=== PATIENT | female | born 1940 | race Hispanic/Latino ===

== ENCOUNTER 2016-06-11 08:20 | Observation (INO) | payer MEDICARE, OTHER ==
[2016-06-11 08:20] VITALS: BMI 27.4
[2016-06-11 08:40] VITALS: BP 160/83; PULSE 65; RESP 20; TEMP 98.7; O2SAT 98
--- NOTE | 2016-06-11 08:41 | ED PDOC ---
HPI: General Adult Time Seen by Provider: 06/11/16 08:36 Chief Complaint (Nursing): ENT Problem History Per: Patient History/Exam Limitations: no limitations Onset/Duration Of Symptoms: Days Additional Complaint(s): 75-year-old female, PMHx includes Anxiety, Arthritis, Dementia, Depression, Diabetes, Gastritis, Hypertension, Hypercholesterolemia, and Hyperlipidemia, presents to the emergency department with multiple complaints of epigastric abdominal pain that radiates to back for the past 2-3 days. Pain is described as a "burning" sensation, associated with dysuria; it was initially intermittent , but became persistent this morning, resulting in her coming to the ED for evaluation. secondary complaint is sore throat x3 days. Patient denies nausea/ vomiting, dyspnea, chest pain, dizziness, back pain, fevers, chills, numbness/ weakness, incontinence, or any other associated symptoms. No other complaints at this time. PMD Dr Farrar Past Medical History Reviewed: Historical Data, Nursing Documentation, Vital Signs Vital Signs: Last Vital Signs Temp 98.7 F 06/11/16 08:22 Pulse 65 06/11/16 08:22 Resp 20 06/11/16 08:22 BP 160/83 H 06/11/16 08:22 Pulse Ox 98 06/11/16 14:16 - Medical History PMH: Anxiety, Arthritis, Dementia, Depression, Diabetes (type II), Gastritis, HTN, Hypercholesterolemia, Hyperlipidemia Denies: Hepatitis, HIV, Chronic Kidney Disease, Seizures, Sexually Transmitted Disease - Surgical History Surgical History: Cholecystectomy - Family History Family History: States: Unknown Family Hx - Living Arrangements Living Arrangements: With Family - Social History Current smoker - smoking cessation education provided: No Alcohol: None Drugs: Denies - Home Medications Home Medications: Ambulatory Orders Medication Instructions Recorded Acetaminophen [Tylenol 325mg tab] 2 tab PO Q4 PRN 04/27/16 Aluminum Hydroxide/Magnesium H 30 ml PO DAILY PRN 04/27/16 [Maalox 30 ml] DiphenhydrAMINE [Benadryl] 25 mg PO HS PRN 04/27/16 DiphenhydrAMINE [Benadryl] 25 mg PO Q8 PRN 04/27/16 Haloperidol Lactate [Haldol] 1 mg IM Q8 PRN 04/27/16 Haloperidol [Haldol] 1 mg PO Q8 PRN 04/27/16 Multivit,Tx,Iron/Calcm/FA/Mins 1 tab PO DAILY 04/27/16 [Therapeutic M Tablet] Risperidone [Risperdal] 0.5 mg PO Q12 PRN 04/27/16 Aspirin [Aspirin Chewable] 1 tab PO DAILY #30 chew 04/30/16 Atorvastatin [Lipitor] 40 mg PO HS #30 tab 04/30/16 Bismuth Subsalicylate [Pepto 524 mg PO DAILY PRN #30 ctb 04/30/16 Bismol] Calcium Carbonate [Oscal] 500 mg PO DAILY #30 tab 04/30/16 Ergocalciferol (Vitamin D2) 1 tab PO QD7 #4 capsule 04/30/16 [Vitamin D2] Escitalopram [Lexapro] 1 tab PO DAILY #30 tab 04/30/16 Famotidine [Pepcid] 1 tab PO BID #60 tab 04/30/16 Fenofibrate [Tricor] 48 mg PO DAILY #30 tab 04/30/16 Gabapentin [Neurontin] 1 tab PO Q12 #60 cap 04/30/16 Lisinopril [Zestril] 20 mg PO Q12 #60 tab 04/30/16 Magnesium Hydroxide [Milk Of 30 ml PO HS PRN #150 udc 04/30/16 Magnesia] Memantine [Namenda] 5 mg PO DAILY #30 tab 04/30/16 Metformin HCl [Glucophage] 1 tab PO BID #60 tablet 04/30/16 Metoprolol Tartrate [Lopressor] 25 mg PO Q12 #60 tab 04/30/16 Risperidone [Risperdal] 1 mg PO DAILY #30 tablet 04/30/16 Risperidone [Risperdal] 2 mg PO DAILY #30 tablet 04/30/16 - Allergies Allergies/Adverse Reactions: Allergies Allergy/AdvReac Type Severity Reaction Status Date / Time No Known Allergies Allergy Verified 06/11/16 08:22 Review of Systems ROS Statement: Except As Marked, All Systems Reviewed And Found Negative Constitutional: Negative for: Fever, Chills ENT: Positive for: Throat Pain Respiratory: Negative for: Cough Gastrointestinal: Positive for: Abdominal Pain. Negative for: Nausea, Vomiting , Diarrhea, Constipation Genitourinary Female: Positive for: Dysuria. Negative for: Vaginal Discharge, Vaginal Bleeding Musculoskeletal: Positive for: Back Pain Skin: Negative for: Rash Neurological: Negative for: Weakness, Numbness, Headache, Dizziness Physical Exam - Reviewed Nursing Documentation Reviewed: Yes Vital Signs Reviewed: Yes - Physical Exam Appears: Positive for: Non-toxic, No Acute Distress Head Exam: Positive for: NORMOCEPHALIC Skin: Positive for: Warm, Dry. Negative for: Rash Eye Exam: Positive for: Normal appearance ENT: Positive for: Pharyngeal Erythema (TRACE). Negative for: Nasal Congestion , Tonsillar Exudate Neck: Positive for: Normal, Painless ROM, Supple Cardiovascular/Chest: Positive for: Regular Rate, Rhythm. Negative for: Edema Respiratory: Positive for: Normal Breath Sounds. Negative for: Accessory Muscle Use Gastrointestinal/Abdominal: Positive for: Soft, Tenderness (mild, diffuse). Negative for: Distended, Guarding, Rebound Back: Positive for: Normal Inspection. Negative for: L CVA Tenderness, R CVA Tenderness Extremity: Positive for: Normal ROM. Negative for: Tenderness, Pedal Edema Neurologic/Psych: Positive for: Alert (and awake), Oriented - Laboratory Results Result Diagrams: 06/11/16 09:15 06/11/16 09:15 Interpretation Of Abn Labs: urine wbc, strep pos - ECG ECG: Positive for: Interpreted By Me, Viewed By Me ECG Rhythm: Positive for: Normal QRS, Normal ST Segment, Sinus Rhythm O2 Sat by Pulse Oximetry: 98 Pulse Ox Interpretation: Normal - CT Scan/US ct Other Rad Studies (CT/US): Read By Radiologist Other Rad Interpretation: adnexal cyst Medical Decision Making Medical Decision Making: Impression: 75y/o F comes in w/ abdominal pain and throat pain x2-3 days. Prior Visits: Notes and records from previous visits were reviewed. Patient seen in ED on 04/12, she was admitted for chest pain. Plan: * CT Abd/Pel * EKG * CMP, Lipase, Trop I * CBC * IVF, Pepcid * Rapid Strep * Reassess and Disposition Scribe Attestation: Documented by Sheryl Huitron acting as a scribe for Mendoza Cunningham MD. Provider Attestation: All medical record entries made by the Scribe were at my direction and personally dictated by me. I have reviewed the chart and agree that the record accurately reflects my personal performance of the history, physical exam, medical decision making, and the department course for this patient. I have also personally directed, reviewed, and agree with the discharge instructions and disposition. ED OBSERVATION Discharge: Yes Date of observation admission: 06/11/16 Time of observation admission: 08:50 - Observation admission statement Patient is being placed in observation because:: abdominal pain - Goals of Observation Goals of observation are:: TREAT PAIN, DETERMINE DISPO - Progress Note Progress Note: 06/11/16 10:00 Patient is (+) for Strep. Pending CT scan 06/11/16 14:17 Stable. AAOx3. Pain free. Tolerated PO. Fu with pcp. Disposition - Clinical Impression Clinical Impression: Streptococcal sore throat, Ovarian cyst, Abdominal pain, UTI (urinary tract infection) - Patient ED Disposition Is Patient to be Admitted: No Counseled Patient/Family Regarding: Studies Performed, Diagnosis, Need For Followup, Rx Given - Disposition Disposition: Routine/Home Disposition Time: 14:24 Condition: STABLE - POA Present On Arrival: None
[2016-06-11] MEDS ORDERED: Sodium Chloride 0.9% 1,000 ML IV STA (08:51)
[2016-06-11] MEDS ORDERED: Iohexol 240 (50 ml) PO ONE (08:51)
[2016-06-11] MEDS ORDERED: Iohexol 240 (50 ml) ONE (09:16)
[2016-06-11 09:35] LABS: BASO % 0.2 % (0.0-2.0); EOS # 0.1 K/uL (0.0-0.7); EOS % 1.2 % (0.0-4.0); HEMATOCRIT 36.3 % (34.0-47.0); LYMPH # 0.9 K/uL (1.0-4.3); LYMPH % 10.6 % (20.0-40.0); MEAN CELL VOLUME 85.2 fl (81.0-99.0); MEAN CORPUSCULAR HEMOGLOBIN 27.7 pg (27.0-31.0); MEAN CORPUSCULAR HGB CONC 32.5 g/dL (33.0-37.0); MEAN PLATELET VOLUME 9.2 fl (7.2-11.7); MONO # 0.7 K/uL (0.0-0.8); MONO % 7.7 % (0.0-10.0); NEUT # 6.8 K/uL (1.8-7.0); NEUT % 80.3 % (50.0-75.0); WHITE BLOOD COUNT 8.4 K/uL (4.8-10.8)
[2016-06-11 09:41] LABS: ALB/GLOB RATIO 1.6 (1.0-2.1); ALKALINE PHOSPHATASE 43 U/L (38-126); ALT/SGPT 25 U/L (9-52); AST/SGOT 37 U/L (14-36); BILIRUBIN,TOTAL 1.2 mg/dl (0.2-1.3); BLOOD UREA NITROGEN 16 mg/dl (7-17); CALCIUM 9.7 mg/dL (8.4-10.2); CARBON DIOXIDE 28 mmol/L (22-30); CHLORIDE 104 mmol/L (98-107); GFR AFRICAN-AMERICAN > 60; GLUCOSE,RANDOM 101 mg/dL (65-105); LIPASE 76 U/L (23-300); POTASSIUM 4.5 MMOL/L (3.6-5.0); SODIUM 140 mmol/l (132-148); TOTAL PROTEIN 7.2 G/DL (6.3-8.2)
[2016-06-11 09:45] LABS: RBC URINE 2 /hpf (0-3); URINE BACTERIA RARE (<OCC); URINE BILIRUBIN NEGATIVE (NEGATIVE); URINE BLOOD NEGATIVE (NEGATIVE); URINE COLOR YELLOW (YELLOW); URINE GLUCOSE (UA) NEG (Normal); URINE KETONE NEGATIVE (NEGATIVE); URINE LEUKOCYTE ESTERASE MOD Leu/uL (Negative); URINE PROTEIN NEGATIVE (NEGATIVE); URINE UROBILINOGEN 0.2-1.0 mg/dL (0.2-1.0); WBC URINE 7 /hpf (0-5)
[2016-06-11] MEDS ORDERED: Sodium Chloride 0.9% 100 ML ONE (11:01)
[2016-06-11] MEDS ORDERED: Iohexol 300 100 ML IJ ONE (11:01)
--- NOTE | 2016-06-11 14:12 | CT ---
PROCEDURE: CT Abdomen and Pelvis with contrast HISTORY: abd pain COMPARISON: None. TECHNIQUE: Contrast dose: 100 cc Radiation dose: Total exam DLP = 861 mGy-cm. FINDINGS: LOWER THORAX: No infiltrate or effusion. Small hiatal hernia is noted. LIVER: Liver is probably mildly fatty infiltrated. Minor intrahepatic ductal dilatation is seen although the gallbladder is been previously removed. Common bile duct is not dilated and no common bile duct calculus was seen. GALLBLADDER AND BILE DUCTS: Gallbladder is been previously removed. Common bile duct is normal in size with normal tapering. PANCREAS: Unremarkable. No gross lesion or ductal dilatation. SPLEEN: Unremarkable. ADRENALS: Unremarkable. No mass. KIDNEYS AND URETERS: Small right renal cyst is noted in the upper pole region. No hydronephrosis is seen. No renal calculus is noted. No perinephric changes are seen. Kidneys are otherwise normal in size. VASCULATURE: Unremarkable. No aortic aneurysm. BOWEL: No pericolonic inflammatory process is seen. No bowel obstruction is noted . No pneumatosis is identified. Terminal ileum is unremarkable. APPENDIX: Normal appendix. PERITONEUM: Unremarkable. No free fluid. No free air. LYMPH NODES: Unremarkable. No enlarged lymph nodes. BLADDER: Unremarkable. REPRODUCTIVE: There is evidence of a left adnexal cyst measuring 4.9 centimeters x 4.3 centimeters by 3.8 centimeters. No right adnexal masses are seen. No fluid is seen in the cul-de-sac. Uterus is otherwise normal in size. BONES: Degenerative changes are seen in the spine without compression fracture. No lytic process is seen. OTHER FINDINGS: There is evidence of some mild thickening in the region of the gastric antrum. A portion of this may be related to under distention. Remainder the stomach is unremarkable. Duodenum is within normal limits. IMPRESSION: No evidence of bowel obstruction. No evidence of free intraperitoneal air. Mild thickening in the region of the gastric antrum which may reflect gastritis or under distention. Status post cholecystectomy. Minor intrahepatic ductal prominence although the common bile duct is normal in size and no common bile duct stone is seen. This may be related to the long-standing cholecystectomy. Small right renal cyst. Enlarged low-density smoothly marginated left adnexal cyst. Further work up as an outpatient would be suggested if this has not already been evaluated. Normal appendix.
--- NOTE | 2016-06-13 09:50 | CARD ---
APPROVED REPORT EKG Measurement Heart [id number] <Conclusion> Normal sinus rhythm Normal ECG
== END 2016-06-11 14:24 | disposition home or self-care (01) ==
LOC: H.ER 08:20 → H.EROBSV 08:52 → H.ERHOLD 08:52 → H.EROBSV 16:50
PROVIDERS: ADMIT Emergency Medicine; ATTEND Emergency Medicine
DX: J02.0 Streptococcal pharyngitis (principal); N83.209 Unspecified ovarian cyst, unspecified side; N39.0 Urinary tract infection, site not specified; E11.9 Type 2 diabetes mellitus without complications; E78.00 Pure hypercholesterolemia, unspecified; E78.5 Hyperlipidemia, unspecified; F03.90 Unspecified dementia, unspecified severity, without behavioral disturbance, psychotic disturbance, mood disturbance, and anxiety; I10 Essential (primary) hypertension; K29.70 Gastritis, unspecified, without bleeding; M19.90 Unspecified osteoarthritis, unspecified site; F41.9 Anxiety disorder, unspecified; F32.9 Major depressive disorder, single episode, unspecified
CPT/HCPCS: 36415; 74177; 80053; 81003; 83690; 84484; 85025; 87086; 87430; 96360; 96374; 99283; G0378; J7040; Q9966; Q9967

== ENCOUNTER 2016-06-14 05:17 | Emergency (ER) | payer MEDICARE, OTHER ==
[2016-06-14 05:17] VITALS: BMI 27.4
[2016-06-14] MEDS ORDERED: Sodium Chloride 0.9% 1,000 ML IV STA (05:45)
--- NOTE | 2016-06-14 05:57 | ED PDOC ---
HPI: Abdomen Time Seen by Provider: 06/14/16 05:25 Chief Complaint (Nursing): Abdominal Pain Chief Complaint (Provider): Abdominal Pain History Per: Patient History/Exam Limitations: no limitations Onset/Duration Of Symptoms: Persistent (2 weeks) Severity: Moderate Location Of Pain/Discomfort: LUQ, LLQ Quality Of Discomfort: "Pain" Associated Symptoms: denies: Nausea, Vomiting Additional Complaint(s): Ghada Gomez is a 75 y/o female, with a past medical history of gastritis, hypertension, hypercholesterolemia, and dementia, brought in by EMS on 2016 for abdominal pain. Patient, of note, is well-known to the ED and is a poor historian. Patient reports having left sided abdominal pain x2 weeks. Patient denies any associated nausea or vomiting and has not taken any medications prior to arrival. Past Medical History Reviewed: Historical Data, Nursing Documentation, Vital Signs Vital Signs: Last Vital Signs Temp 98.5 F 06/14/16 07:25 Pulse 67 06/14/16 07:25 Resp 16 06/14/16 07:25 BP 150/84 06/14/16 07:25 Pulse Ox 98 06/14/16 08:49 - Medical History PMH: Anxiety, Arthritis, Dementia, Depression, Diabetes (type II), Gastritis, HTN, Hypercholesterolemia, Hyperlipidemia Denies: Hepatitis, HIV, Chronic Kidney Disease, Seizures, Sexually Transmitted Disease - Surgical History Surgical History: Cholecystectomy - Family History Family History: States: Unknown Family Hx - Social History Current smoker - smoking cessation education provided: No Alcohol: None Drugs: Denies - Home Medications Home Medications: Ambulatory Orders Medication Instructions Recorded Acetaminophen [Tylenol 325mg tab] 2 tab PO Q4 PRN 04/27/16 Aluminum Hydroxide/Magnesium H 30 ml PO DAILY PRN 04/27/16 [Maalox 30 ml] DiphenhydrAMINE [Benadryl] 25 mg PO HS PRN 04/27/16 DiphenhydrAMINE [Benadryl] 25 mg PO Q8 PRN 04/27/16 Haloperidol Lactate [Haldol] 1 mg IM Q8 PRN 04/27/16 Haloperidol [Haldol] 1 mg PO Q8 PRN 04/27/16 Multivit,Tx,Iron/Calcm/FA/Mins 1 tab PO DAILY 04/27/16 [Therapeutic M Tablet] Risperidone [Risperdal] 0.5 mg PO Q12 PRN 04/27/16 Aspirin [Aspirin Chewable] 1 tab PO DAILY #30 chew 04/30/16 Atorvastatin [Lipitor] 40 mg PO HS #30 tab 04/30/16 Bismuth Subsalicylate [Pepto 524 mg PO DAILY PRN #30 ctb 04/30/16 Bismol] Calcium Carbonate [Oscal] 500 mg PO DAILY #30 tab 04/30/16 Ergocalciferol (Vitamin D2) 1 tab PO QD7 #4 capsule 04/30/16 [Vitamin D2] Escitalopram [Lexapro] 1 tab PO DAILY #30 tab 04/30/16 Famotidine [Pepcid] 1 tab PO BID #60 tab 04/30/16 Fenofibrate [Tricor] 48 mg PO DAILY #30 tab 04/30/16 Gabapentin [Neurontin] 1 tab PO Q12 #60 cap 04/30/16 Lisinopril [Zestril] 20 mg PO Q12 #60 tab 04/30/16 Magnesium Hydroxide [Milk Of 30 ml PO HS PRN #150 udc 04/30/16 Magnesia] Memantine [Namenda] 5 mg PO DAILY #30 tab 04/30/16 Metformin HCl [Glucophage] 1 tab PO BID #60 tablet 04/30/16 Metoprolol Tartrate [Lopressor] 25 mg PO Q12 #60 tab 04/30/16 Risperidone [Risperdal] 1 mg PO DAILY #30 tablet 04/30/16 Risperidone [Risperdal] 2 mg PO DAILY #30 tablet 04/30/16 Famotidine [Pepcid] 20 mg PO DAILY PRN #6 tab 06/11/16 Ibuprofen [Motrin] 600 mg PO TID 7 Days 06/11/16 Nitrofurantoin Macrocrystals 100 mg PO BID #10 cap 06/11/16 [Macrobid] Penicillin VK [Pen-Vee K] 500 mg PO BID 7 Days 06/11/16 - Allergies Allergies/Adverse Reactions: Allergies Allergy/AdvReac Type Severity Reaction Status Date / Time No Known Allergies Allergy Verified 06/11/16 08:22 Review of Systems ROS Statement: Except As Marked, All Systems Reviewed And Found Negative Constitutional: Negative for: Fever Gastrointestinal: Positive for: Abdominal Pain. Negative for: Nausea, Vomiting Physical Exam - Reviewed Nursing Documentation Reviewed: Yes Vital Signs Reviewed: Yes - Physical Exam Appears: Positive for: Non-toxic, No Acute Distress Head Exam: Positive for: ATRAUMATIC, NORMOCEPHALIC Skin: Positive for: Normal Color Eye Exam: Positive for: Normal appearance, EOMI, PERRL ENT: Positive for: Normal ENT Inspection, Pharynx Is (clear). Negative for: Pharyngeal Erythema, Tonsillar Exudate, Tonsillar Swelling Neck: Positive for: Normal, Painless ROM, Supple Cardiovascular/Chest: Positive for: Regular Rate, Rhythm. Negative for: Murmur Respiratory: Positive for: Normal Breath Sounds. Negative for: Respiratory Distress Gastrointestinal/Abdominal: Positive for: Normal Exam, Soft, Tenderness ((+) LUQ ) Extremity: Positive for: Normal ROM. Negative for: Deformity Neurologic/Psych: Positive for: Alert, Oriented. Negative for: Motor/Sensory Deficits - Laboratory Results Result Diagrams: 06/14/16 06:00 06/14/16 06:00 - ECG O2 Sat by Pulse Oximetry: 98 (RA) Medical Decision Making Medical Decision Makin:34 Initial Impression- Abdominal Pain - abdomen benign. Initial Plan- * CMP * Lipase * CBC w/ differential * Sodium Chloride 1,000 ml IV * Pepcid 20 mg IVP * Toradol 30 mg IV * Zofran 4 mg IV * Urine Cx * Urinalysis patient had ct scan on June 11, 2016 results below 07:00 Signing out pt to Dr. Marisa MD. Pending labs and re-eval. Documented by Mable Cunningham, acting as a scribe for Sejal Agosto MD. All medical record entries made by the Scribe were at my direction and personally dictated by me. I have reviewed the chart and agree that the record accurately reflects my personal performance of the history, physical exam, medical decision making, and the department course for this patient. I have also personally directed, reviewed, and agree with the discharge instructions and disposition. PROCEDURE: CT Abdomen and Pelvis with contrast HISTORY: abd pain COMPARISON: None. TECHNIQUE: Contrast dose: 100 cc Radiation dose: Total exam DLP = 861 mGy-cm. FINDINGS: LOWER THORAX: No infiltrate or effusion. Small hiatal hernia is noted. LIVER: Liver is probably mildly fatty infiltrated. Minor intrahepatic ductal dilatation is seen although the gallbladder is been previously removed. Common bile duct is not dilated and no common bile duct calculus was seen. GALLBLADDER AND BILE DUCTS: Gallbladder is been previously removed. Common bile duct is normal in size with normal tapering. PANCREAS: Unremarkable. No gross lesion or ductal dilatation. SPLEEN: Unremarkable. ADRENALS: Unremarkable. No mass. KIDNEYS AND URETERS: Small right renal cyst is noted in the upper pole region. No hydronephrosis is seen. No renal calculus is noted. No perinephric changes are seen. Kidneys are otherwise normal in size. VASCULATURE: Unremarkable. No aortic aneurysm. BOWEL: No pericolonic inflammatory process is seen. No bowel obstruction is noted . No pneumatosis is identified. Terminal ileum is unremarkable. APPENDIX: Normal appendix. PERITONEUM: Unremarkable. No free fluid. No free air. LYMPH NODES: Unremarkable. No enlarged lymph nodes. BLADDER: Unremarkable. REPRODUCTIVE: There is evidence of a left adnexal cyst measuring 4.9 centimeters x 4.3 centimeters by 3.8 centimeters. No right adnexal masses are seen. No fluid is seen in the cul-de-sac. Uterus is otherwise normal in size. BONES: Degenerative changes are seen in the spine without compression fracture. No lytic process is seen. OTHER FINDINGS: There is evidence of some mild thickening in the region of the gastric antrum. A portion of this may be related to under distention. Remainder the stomach is unremarkable. Duodenum is within normal limits. IMPRESSION: No evidence of bowel obstruction. No evidence of free intraperitoneal air. Mild thickening in the region of the gastric antrum which may reflect gastritis or under distention. Status post cholecystectomy. Minor intrahepatic ductal prominence although the common bile duct is normal in size and no common bile duct stone is seen. This may be related to the long-standing cholecystectomy. Small right renal cyst. Enlarged low-density smoothly marginated left adnexal cyst. Further work up as an outpatient would be suggested if this has not already been evaluated. Normal appendix. Disposition - Clinical Impression Clinical Impression: Abdominal pain, UTI (urinary tract infection), Strep pharyngitis - Patient ED Disposition Is Patient to be Admitted: Transfer of Care - Disposition Referrals: formerly [facility] [Outside] - 06/15/16 Disposition: Transfer of Care Disposition Time: 07:00 Condition: GOOD Additional Instructions: Return if not better in 3 days. See your doctor without fail in 3 days. Take your antibiotics as prescribed in last visit. Instructions: Urinary Tract Infection in Women (ED), Strep Throat (ED), Acute Abdominal Pain (ED) Print Language: PANAMANIAN Patient Signed Over To: Mendoza Cunningham Handoff Comments: reeval and dispo
[2016-06-14 06:23] LABS: BASO % 0.7 % (0.0-2.0); EOS # 0.3 K/uL (0.0-0.7); EOS % 5.2 % (0.0-4.0); HEMATOCRIT 35.4 % (34.0-47.0); LYMPH # 1.4 K/uL (1.0-4.3); LYMPH % 23.4 % (20.0-40.0); MEAN CELL VOLUME 85.8 fl (81.0-99.0); MEAN CORPUSCULAR HGB CONC 32.6 g/dL (33.0-37.0); MEAN PLATELET VOLUME 8.9 fl (7.2-11.7); MONO # 0.7 K/uL (0.0-0.8); MONO % 12.4 % (0.0-10.0); NEUT # 3.4 K/uL (1.8-7.0); NEUT % 58.3 % (50.0-75.0); NRBC % 0.1 % (0.0-0.0); RED CELL DISTRIBUTION WIDTH 14.3 % (11.5-14.5); WHITE BLOOD COUNT 5.8 K/uL (4.8-10.8)
[2016-06-14 06:30] LABS: RBC URINE 2 /hpf (0-3); URINE BILIRUBIN NEGATIVE (NEGATIVE); URINE BLOOD NEGATIVE (NEGATIVE); URINE COLOR YELLOW (YELLOW); URINE GLUCOSE (UA) NEG (Normal); URINE KETONE NEGATIVE (NEGATIVE); URINE LEUKOCYTE ESTERASE SMALL Leu/uL (Negative); URINE PROTEIN NEGATIVE (NEGATIVE); URINE UROBILINOGEN 0.2-1.0 mg/dL (0.2-1.0); WBC URINE 6 /hpf (0-5)
[2016-06-14 06:32] LABS: ALB/GLOB RATIO 1.5 (1.0-2.1); ALKALINE PHOSPHATASE 65 U/L (38-126); ALT/SGPT 26 U/L (9-52); AST/SGOT 29 U/L (14-36); BILIRUBIN,TOTAL 0.5 mg/dl (0.2-1.3); BLOOD UREA NITROGEN 15 mg/dl (7-17); CALCIUM 9.6 mg/dL (8.4-10.2); CARBON DIOXIDE 27 mmol/L (22-30); CHLORIDE 105 mmol/L (98-107); GFR AFRICAN-AMERICAN > 60; GLUCOSE,RANDOM 130 mg/dL (65-105); LIPASE 157 U/L (23-300); POTASSIUM 4.1 MMOL/L (3.6-5.0); SODIUM 149 mmol/l (132-148)
--- NOTE | 2016-06-14 07:18 | ED PDOC ---
- Laboratory Results Result Diagrams: 06/14/16 06:00 06/14/16 06:00 Interpretation Of Abn Labs: urine wbc 6 - ECG ECG: Positive for: Interpreted By Me, Viewed By Me ECG Rhythm: Positive for: Normal QRS, Normal ST Segment, Sinus Rhythm O2 Sat by Pulse Oximetry: 98 (RA) Pulse Ox Interpretation: Normal - Progress ED Course And Treament: 846: Stable. AAOx3. Pain free. Tolerated PO. Seen few days ago for same. Had full work and dx with uti, strep, and ovarian cyst. Pt. has started her antibiotics per . Pt. had a full breakfast in the ER. Pt. to fu with pcp. Continue meds rx. Medical Decision Making Medical Decision Makin:00 Patient signed out to me by Dr. Agosto. Pending re-evaluation and final disposition. Disposition - Clinical Impression Clinical Impression: UTI (urinary tract infection), Abdominal pain, Strep pharyngitis - POA Present On Arrival: None - Disposition Referrals: [facility] [Outside] - 06/15/16 Disposition: Routine/Home Disposition Time: 08:48 Additional Instructions: Return if not better in 3 days. See your doctor without fail in 3 days. Take your antibiotics as prescribed in last visit. Instructions: Acute Abdominal Pain (ED), Urinary Tract Infection in Women (ED) , Strep Throat (ED) Print Language: DOMINICAN
[2016-06-14 07:48] VITALS: BP 150/84; PULSE 67; RESP 16; TEMP 98.5
[2016-06-14 08:26] VITALS: O2SAT 98
== END 2016-06-14 09:16 | disposition home or self-care (01) ==
LOC: H.ER 05:17
DX: N39.0 Urinary tract infection, site not specified (principal); J02.0 Streptococcal pharyngitis; R10.9 Unspecified abdominal pain; E11.9 Type 2 diabetes mellitus without complications; F03.90 Unspecified dementia, unspecified severity, without behavioral disturbance, psychotic disturbance, mood disturbance, and anxiety; I10 Essential (primary) hypertension; Z86.59 Personal history of other mental and behavioral disorders
CPT/HCPCS: 80053; 81003; 82948; 83690; 85025; 87086; 96361; 96374; 96375; 99283; J2405; J7040

== ENCOUNTER 2016-11-12 14:47 | Emergency (ER) | payer MEDICARE, MEDICAID ==
[2016-11-12 14:47] VITALS: BMI 27.4
[2016-11-12 14:58] VITALS: BP 132/82; PULSE 67; RESP 20; TEMP 98.6; O2SAT 99
--- NOTE | 2016-11-12 15:27 | ED PDOC ---
HPI: Abdomen Time Seen by Provider: 11/12/16 15:24 Chief Complaint (Nursing): Abdominal Pain Chief Complaint (Provider): Abdominal and back pain History Per: Patient History/Exam Limitations: no limitations Onset/Duration Of Symptoms: Other (two months) Current Symptoms Are (Timing): Still Present Associated Symptoms: Chills. denies: Fever, Vomiting, Diarrhea Additional Complaint(s): Patient is a 75 year old female with a past medical history of dementia and cholecystectomy presenting to the emergency department for constant, diffuse abdominal pain and lower back pain x 2 months and worse today with associated chills. Notes having a colonoscopy one month ago with no improvement of symptoms. Denies vomiting, diarrhea, and fever. PCP: Dr. Tulio Gomez GI: Dr. Donald Past Medical History Reviewed: Historical Data, Nursing Documentation, Vital Signs Vital Signs: Last Vital Signs Temp 98.6 F 11/12/16 14:50 Pulse 67 11/12/16 14:50 Resp 20 11/12/16 14:50 BP 132/82 11/12/16 14:50 Pulse Ox 99 11/12/16 21:15 - Medical History PMH: Anemia, Anxiety, Arthritis, Dementia, Depression, Diabetes (type II), Gastritis, HTN, Hypercholesterolemia, Hyperlipidemia Denies: Hepatitis, HIV, Chronic Kidney Disease, Seizures, Sexually Transmitted Disease - Surgical History Surgical History: Cholecystectomy - Family History Family History: States: Unknown Family Hx - Social History Current smoker - smoking cessation education provided: No Ex-Smoker (has not smoked in the last 12 months): No Alcohol: None Drugs: Denies - Home Medications Home Medications: Ambulatory Orders Medication Instructions Recorded Escitalopram [Lexapro] 1 tab PO DAILY #30 tab 04/30/16 ALPRAZolam [Xanax] 0.25 mg PO Q12 PRN #30 tab 10/13/16 Aspirin [Aspirin Chewable] 1 tab PO DAILY #30 chew 10/13/16 Fenofibrate [Tricor] 48 mg PO DAILY #30 tab 10/13/16 Memantine [Namenda] 5 mg PO DAILY #30 tab 10/13/16 Pantoprazole [Protonix EC Tab] 40 mg PO DAILY #30 ect 10/13/16 Simethicone [Mylicon Chew Tab] 80 mg PO TID PRN #60 10/13/16 Sucralfate [Carafate] 1 gm PO Q6 PRN #120 10/13/16 Valsartan [Diovan] 160 mg PO DAILY #30 tab 10/13/16 amLODIPine [Norvasc] 10 mg PO DAILY 30 Days 10/13/16 risperiDONE [RisperDAL Tab] 0.5 mg PO Q12 #60 tab 10/13/16 Dicyclomine [Dicyclomine HCl] 10 mg PO TID #15 cap 11/12/16 Famotidine [Pepcid] 20 mg PO DAILY 11/12/16 Lactulose [Constulose] 11/12/16 Lisinopril [Zestril] 20 mg PO DAILY 11/12/16 Simvastatin [Zocor] 20 mg PO HS 11/12/16 metFORMIN [glucOPHAGE] 500 mg PO BID 11/12/16 - Allergies Allergies/Adverse Reactions: Allergies Allergy/AdvReac Type Severity Reaction Status Date / Time No Known Allergies Allergy Verified 11/12/16 14:50 Review of Systems ROS Statement: Except As Marked, All Systems Reviewed And Found Negative Constitutional: Positive for: Chills. Negative for: Fever Gastrointestinal: Positive for: Abdominal Pain (diffuse). Negative for: Vomiting, Diarrhea Musculoskeletal: Positive for: Back Pain (lower back pain) Physical Exam - Reviewed Nursing Documentation Reviewed: Yes Vital Signs Reviewed: Yes - Physical Exam Appears: Positive for: Well, Non-toxic, No Acute Distress. Negative for: Uncomfortable Head Exam: Positive for: ATRAUMATIC, NORMAL INSPECTION, NORMOCEPHALIC Skin: Positive for: Normal Color, Warm, Dry Eye Exam: Positive for: Normal appearance, EOMI. Negative for: Scleral icterus Neck: Positive for: Normal, Painless ROM, Supple Cardiovascular/Chest: Positive for: Regular Rate, Rhythm. Negative for: Murmur Respiratory: Positive for: Normal Breath Sounds. Negative for: Accessory Muscle Use, Respiratory Distress Pulses-Radial (R): 2+ Gastrointestinal/Abdominal: Positive for: Soft, Tenderness (diffuse abdominal tenderness). Negative for: Normal Exam Back: Positive for: Other (lower back tenderness). Negative for: Normal Inspection, L CVA Tenderness, R CVA Tenderness Extremity: Positive for: Normal ROM Neurologic/Psych: Positive for: Alert, Oriented - Laboratory Results Result Diagrams: 11/12/16 16:00 11/12/16 16:00 - ECG ECG: Positive for: Interpreted By Me, Viewed By Me ECG Rhythm: Positive for: Normal QRS, Normal ST Segment, Sinus Rhythm. Negative for: ST/T Changes Interpretation Of ECG: Normal Sinus Rhythm at a rate of [address] changes. O2 Sat by Pulse Oximetry: 99 (RA) Pulse Ox Interpretation: Normal Medical Decision Making Medical Decision Making: Time: 15:25 Initial Impression: Abdominal pain and lower back pain Differential diagnoses: Small bowel obstruction, pancreatitis, colitis, gastroenteritis, cholecystitis, ischemic colitis Initial Plan: Past medical charts will be reviewed for surgical and medical history Abdominal/Pelvis CT Scan with PO & IV Contrast EKG Labs ED Urine Dipstick Omnipaque 50 mL PO Morphine 4 mg IVP Zofran 4 mg IV Reevaluation --Noted findings of Abdominal X-Ray Obstructive Series (09/26/16): PROCEDURE: Radiographs of the chest and abdomen (obstructive series) HISTORY: LEFT sided abd pain, recent colonoscopy COMPARISON: Comparison made with prior obstructive series 07/14/2016 comparison also made with prior CT scan of the abdomen and pelvis 06/11/2016 TECHNIQUE: AP radiograph of the chest, with upright and supine radiographs of the abdomen. FINDINGS: CHEST: Heart size within range of normal. Lung aguilar clear without focal consolidation or effusion. No apparent pneumothorax. Of the abdomen consistent prior cholecystectomy Mild multilevel degenerative spondylosis of the thoracic spine ABDOMEN AND PELVIS: No gross free air seen under the diaphragmatic surfaces. Nonobstructive/ nonspecific bowel gas pattern. Metallic clips again noted right upper quadrant Mild degenerative spondylosis of the lower lumbar spine. IMPRESSION: No acute cardiopulmonary disease. No evidence of acute mechanical bowel obstruction. --Noted findings of CT A/P with contrast (09/26/16): LOWER THORAX: There is bilateral lower lobe atelectasis. There are coronary artery atherosclerotic calcifications.There is a trace pericardial effusion. There is a small hiatal hernia. There is barium in the distal esophagus either due to gastroesophageal reflux or esophageal dysmotility. ABDOMEN: LIVER: No mass or other parenchymal abnormality. GALLBLADDER AND BILE DUCTS: The patient is status post cholecystectomy with clips in the gallbladder fossa. There is stable mild to moderate intrahepatic and moderate extrahepatic biliary dilatation which may be be appropriate post cholecystectomy and for the patient' s age. Correlate clinically and if indicated recommend MRCP correlation. PANCREAS: Pancreatic duct is prominent but within normal limits. No pancreatic mass identified. SPLEEN: Unremarkable. No splenomegaly. ADRENALS: Unremarkable. No mass. KIDNEYS AND URETERS: There is again an exophytic 1.8 x 1.5 cm probable cyst in the upper pole of the left kidney. No hydroureteronephrosis. No urinary tract calculi. STOMACH AND BOWEL: There is thickening of the wall of the distal gastric antrum which may be due to peristalsis although cannot exclude peptic ulcer disease/gastritis. Correlate clinically. There is mild colonic diverticulosis without evidence of diverticulitis. The small and large bowel are otherwise unremarkable. APPENDIX: Normal, no findings to suggest acute appendicitis. PELVIS: BLADDER: The wall of the urinary bladder is thickened most likely due to its nearly empty state. REPRODUCTIVE: There is a stable 4.5 x 4 cm left adnexal cystic lesion, recommend endovaginal pelvic ultrasound if not previously performed. Uterus and right adnexa are unremarkable. ABDOMEN and PELVIS: INTRAPERITONEAL SPACE: Unremarkable. No free air. No ascites or fluid collection. BONES/JOINTS: There are degenerative changes of the lower lumbar spine. SOFT TISSUES: There is a tiny fat containing umbilical hernia. VASCULATURE: No abdominal aortic aneurysm or dissection.. LYMPH NODES: Unremarkable. No pathologically enlarged lymph nodes. IMPRESSION: Thickening of the wall of the distal gastric antrum which may be due to peristalsis although cannot exclude peptic ulcer disease/gastritis. Correlate clinically. Otherwise no acute inflammatory/infectious process identified in the abdomen or pelvis. No evidence of bowel obstruction. Colonic diverticulosis without diverticulitis. Small hiatal hernia with probable GE reflux. Stable 4.5 x 4 cm left adnexal cystic lesion, recommend endovaginal pelvic ultrasound if not previously performed. Cholecystectomy with intra-and extrahepatic biliary dilatation, see above. Right upper pole renal cystic lesion, recommend ultrasound correlation if not previously performed. Thank you for allowing us to participate in the care of your patient. Dictated and Authenticated by: Aniceto Garcia MD 09/26/2016 9:04 PM Eastern Time ([place] & [place]) 17:42 --Patient reports improvement after receiving pain medication. CT A/P scan pending. 19:26 --Patient's condition remains stable. CT A/P scan pending. 20:23 --CT A/P scan reviewed and findings noted: Lower thorax: Minimal atelectasis/scarring. Small cyst or bulla RIGHT lower lobe. Coronary artery calcifications. 0.5 cm RIGHT lower lobe nodule. Small hiatal hernia. Few tiny breast calcifications. ABDOMEN: Liver: [id number] intrahepatic ductal dilatation. Mild extrahepatic ductal dilatation. Gallbladder and bile ducts: Cholecystectomy. Pancreas: No ductal dilation. No mass. Spleen: No splenomegaly. Adrenals: No mass. Kidneys and ureters: Probable RIGHT renal cyst. 1.7 x 1.9 x 1.5 cm lesion within RIGHT kidney, indeterminate by CT criteria. Few too small to characterize lesions within kidneys. No hydronephrosis. Stomach and bowel: Fluid/loose stool within colon. Mild mural thickening versus incomplete distention of gastric antrum. No definite bowel wall thickening. No obstruction. Appendix: Normal caliber. No inflammation. PELVIS: Bladder: Unremarkable. Reproductive: 4.2 x 4.5 x 4.4 cm hypodense lesion within LEFT ovary. ABDOMEN and PELVIS: Intraperitoneal space: No significant fluid collection. No free air. Bones/joints: Mild degenerative changes of spine. No acute fracture. Soft tissues: Unremarkable. Vasculature: Mild atherosclerotic disease. No aneurysm. Lymph nodes: No pathologically enlarged lymph nodes. IMPRESSION: 1. Mild gastric wall thickening vs underdistention. Clinical correlation is needed. 2. Fluid/loose stool within bowel may suggest diarrhea illness. 3. Biliary ductal dilatation. Compare with prior examinations if available or consider MRI. 4. Kidney lesion, indeterminate. Recommend nonemergent ultrasound or MRI if not performed. 5. Adnexal lesion, indeterminate. Recommend ultrasound if not performed. 6. Pulmonary nodules. For low-risk patients, no follow-up is necessary. For high-risk patients (smoking history or other known risk factors) an optional CT at 12 months could be performed. 7. Incidental/non-acute findings are described above. Scribe Attestation: Documented by Maria D Wynn, acting as a scribe for Thea Alonso MD. Provider Scribe Attestation: All medical record entries made by the Scribe were at my direction and personally dictated by me. I have reviewed the chart and agree that the record accurately reflects my personal performance of the history, physical exam, medical decision making, and the department course for this patient. I have also personally directed, reviewed, and agree with the discharge instructions and disposition. Disposition - Clinical Impression Clinical Impression: Abdominal pain in female, Enteritis - Patient ED Disposition Is Patient to be Admitted: No Doctor Will See Patient In The: Office Counseled Patient/Family Regarding: Studies Performed, Diagnosis, Need For Followup - Disposition Referrals: Tulio Gomez MD [Medical Doctor] - Jr Donald [Staff Provider] - Disposition: Routine/Home Disposition Time: 21:14 Condition: GOOD Additional Instructions: Take your medications as instructed. Follow up with your PCP in 2-3 days. Prescriptions: Dicyclomine [Dicyclomine HCl] 10 mg PO TID #15 cap Instructions: Abdominal Pain (ED), Enteritis (ED) Print Language: ROMANIAN
[2016-11-12] MEDS ORDERED: Iohexol 240 (50 ml) PO ONE (15:45)
[2016-11-12] MEDS ORDERED: Iohexol 240 (50 ml) ONE (15:58)
[2016-11-12 16:15] LABS: BASO # 0.1 K/uL (0.0-0.2); BASO % 1.1 % (0.0-2.0); EOS # 0.1 K/uL (0.0-0.7); EOS % 1.3 % (0.0-4.0); HEMATOCRIT 34.4 % (34.0-47.0); LYMPH # 1.6 K/uL (1.0-4.3); LYMPH % 32.6 % (20.0-40.0); MEAN CELL VOLUME 88.4 fl (81.0-99.0); MEAN CORPUSCULAR HEMOGLOBIN 28.9 pg (27.0-31.0); MEAN CORPUSCULAR HGB CONC 32.7 g/dL (33.0-37.0); MEAN PLATELET VOLUME 8.7 fl (7.2-11.7); MONO # 0.5 K/uL (0.0-0.8); NEUT # 2.7 K/uL (1.8-7.0); NRBC % 0.1 % (0.0-0.0); RED CELL DISTRIBUTION WIDTH 14.4 % (11.5-14.5); WHITE BLOOD COUNT 4.8 K/uL (4.8-10.8)
[2016-11-12 16:23] LABS: ALB/GLOB RATIO 1.7 (1.0-2.1); ALKALINE PHOSPHATASE 38 U/L (38-126); ALT/SGPT 37 U/L (9-52); AST/SGOT 24 U/L (14-36); BILIRUBIN,TOTAL 0.5 mg/dl (0.2-1.3); BLOOD UREA NITROGEN 14 mg/dl (7-17); CALCIUM 10.2 mg/dL (8.4-10.2); CARBON DIOXIDE 25 mmol/L (22-30); CHLORIDE 107 mmol/L (98-107); GFR AFRICAN-AMERICAN > 60; GLUCOSE,RANDOM 64 mg/dL (65-105); LIPASE 140 U/L (23-300); SODIUM 144 mmol/l (132-148); TOTAL PROTEIN 6.9 G/DL (6.3-8.2)
[2016-11-12] MEDS ORDERED: Iohexol 300 100 ML IJ ONE (18:46)
[2016-11-12] MEDS ORDERED: Sodium Chloride 0.9% 50 ML IV ONE (18:46)
--- NOTE | 2016-11-12 20:23 | CT ---
EXAM: CT Abdomen and Pelvis With Intravenous Contrast CLINICAL HISTORY: 75 years old, female; Pain; Abdominal pain TECHNIQUE: Axial computed tomography images of the abdomen and pelvis with intravenous contrast. All CT scans at this facility use one or more dose reduction techniques, viz.: automated exposure control; ma/kV adjustment per patient size (including targeted exams where dose is matched to indication; i.e. head); or iterative reconstruction technique. Coronal and sagittal reformatted images were created and reviewed. CONTRAST: 96 mL of omnipaque 300 administered intravenously. COMPARISON: No relevant prior studies available. FINDINGS: Lower thorax: Minimal atelectasis/scarring. Small cyst or bulla RIGHT lower lobe. Coronary artery calcifications. 0.5 cm RIGHT lower lobe nodule. Small hiatal hernia. Few tiny breast calcifications. ABDOMEN: Liver: [id number] intrahepatic ductal dilatation. Mild extrahepatic ductal dilatation. Gallbladder and bile ducts: Cholecystectomy. Pancreas: No ductal dilation. No mass. Spleen: No splenomegaly. Adrenals: No mass. Kidneys and ureters: Probable RIGHT renal cyst. 1.7 x 1.9 x 1.5 cm lesion within RIGHT kidney, indeterminate by CT criteria. Few too small to characterize lesions within kidneys. No hydronephrosis. Stomach and bowel: Fluid/loose stool within colon. Mild mural thickening versus incomplete distention of gastric antrum. No definite bowel wall thickening. No obstruction. Appendix: Normal caliber. No inflammation. PELVIS: Bladder: Unremarkable. Reproductive: 4.2 x 4.5 x 4.4 cm hypodense lesion within LEFT ovary. ABDOMEN and PELVIS: Intraperitoneal space: No significant fluid collection. No free air. Bones/joints: Mild degenerative changes of spine. No acute fracture. Soft tissues: Unremarkable. Vasculature: Mild atherosclerotic disease. No aneurysm. Lymph nodes: No pathologically enlarged lymph nodes. IMPRESSION: 1. Mild gastric wall thickening vs underdistention. Clinical correlation is needed. 2. Fluid/loose stool within bowel may suggest diarrhea illness. 3. Biliary ductal dilatation. Compare with prior examinations if available or consider MRI. 4. Kidney lesion, indeterminate. Recommend nonemergent ultrasound or MRI if not performed. 5. Adnexal lesion, indeterminate. Recommend ultrasound if not performed. 6. Pulmonary nodules. For low-risk patients, no follow-up is necessary. For high-risk patients (smoking history or other known risk factors) an optional CT at 12 months could be performed. 7. Incidental/non-acute findings are described above.
--- NOTE | 2016-11-13 10:15 | CARD ---
APPROVED REPORT EKG Measurement Heart [id number] <Conclusion> Normal sinus rhythm Normal ECG
== END 2016-11-12 22:00 | disposition home or self-care (01) ==
LOC: H.ER 14:47
DX: K52.9 Noninfective gastroenteritis and colitis, unspecified (principal); E11.9 Type 2 diabetes mellitus without complications; E78.5 Hyperlipidemia, unspecified; F03.90 Unspecified dementia, unspecified severity, without behavioral disturbance, psychotic disturbance, mood disturbance, and anxiety; F32.9 Major depressive disorder, single episode, unspecified; F41.9 Anxiety disorder, unspecified; I10 Essential (primary) hypertension; I25.10 Atherosclerotic heart disease of native coronary artery without angina pectoris; K44.9 Diaphragmatic hernia without obstruction or gangrene; Z79.82 Long term (current) use of aspirin; Z79.84 Long term (current) use of oral hypoglycemic drugs; Z87.891 Personal history of nicotine dependence; Z90.49 Acquired absence of other specified parts of digestive tract; N28.89 Other specified disorders of kidney and ureter
CPT/HCPCS: 74177; 80053; 83690; 84484; 85025; 93005; 96374; 96375; 99282; J2270; J2405; Q9966; Q9967

== ENCOUNTER 2016-12-05 20:20 | Observation (INO) | payer MEDICARE, MEDICAID ==
[2016-12-05 20:21] VITALS: BMI 27.4
[2016-12-05 20:55] LABS: BASO % 0.9 % (0.0-2.0); EOS # 0.1 K/uL (0.0-0.7); EOS % 2.5 % (0.0-4.0); HEMATOCRIT 32.8 % (34.0-47.0); LYMPH # 1.9 K/uL (1.0-4.3); MEAN CELL VOLUME 87.3 fl (81.0-99.0); MEAN CORPUSCULAR HEMOGLOBIN 28.7 pg (27.0-31.0); MEAN CORPUSCULAR HGB CONC 32.9 g/dL (33.0-37.0); MONO # 0.4 K/uL (0.0-0.8); MONO % 10.5 % (0.0-10.0); NEUT # 1.8 K/uL (1.8-7.0); NEUT % 42.1 % (50.0-75.0); NRBC % 0.1 % (0.0-0.0); RED CELL DISTRIBUTION WIDTH 13.9 % (11.5-14.5); WHITE BLOOD COUNT 4.3 K/uL (4.8-10.8)
--- NOTE | 2016-12-05 20:56 | ED PDOC ---
HPI: Psych/Substance Abuse Time Seen by Provider: 12/05/16 20:29 Chief Complaint (Nursing): Pain, Chronic Chief Complaint (Provider): Psychiatric evaluation History Per: Patient History/Exam Limitations: no limitations Onset/Duration Of Symptoms: Days (x 1 month) Current Symptoms Are (Timing): Still Present Additional History Per: Additional Complaint(s): Ghada is a 76 y/o female who presents to the ED for psychiatric evaluation for depression. reports patient has been saying I want to repeatedly at home. She has been suffering from chronic pain for the past 2 months Pain is abdominal and back, as well as the rest of her body. Evaluation has not demonstrated a source for this pain. For the last week, she and her have not had electricity in the house, further making the patient more upset. Patient states she is not suicidal and that she just says that because shes so frustrated. Patient also says her has dementia, and that cannot rely on his history. Other than body pain, she has no other complaints. PMD: Diaz Gomez Past Medical History Reviewed: Historical Data, Nursing Documentation, Vital Signs Vital Signs: Last Vital Signs Temp 97.8 F 12/05/16 20:22 Pulse 55 L 12/05/16 20:22 Resp 17 12/05/16 20:22 BP 123/60 12/05/16 20:22 Pulse Ox 98 12/05/16 20:22 - Medical History PMH: Anemia, Anxiety, Arthritis, Dementia, Depression, Diabetes (type II), Gastritis, HTN, Hypercholesterolemia, Hyperlipidemia, Chronic Pain Denies: Hepatitis, HIV, Chronic Kidney Disease, Seizures, Sexually Transmitted Disease - Surgical History Surgical History: Cholecystectomy - Family History Family History: States: Unknown Family Hx - Home Medications Home Medications: Ambulatory Orders Medication Instructions Recorded Escitalopram [Lexapro] 1 tab PO DAILY #30 tab 04/30/16 ALPRAZolam [Xanax] 0.25 mg PO Q12 PRN #30 tab 10/13/16 Aspirin [Aspirin Chewable] 1 tab PO DAILY #30 chew 10/13/16 Fenofibrate [Tricor] 48 mg PO DAILY #30 tab 10/13/16 Memantine [Namenda] 5 mg PO DAILY #30 tab 10/13/16 Pantoprazole [Protonix EC Tab] 40 mg PO DAILY #30 ect 10/13/16 Simethicone [Mylicon Chew Tab] 80 mg PO TID PRN #60 10/13/16 Sucralfate [Carafate] 1 gm PO Q6 PRN #120 10/13/16 Valsartan [Diovan] 160 mg PO DAILY #30 tab 10/13/16 amLODIPine [Norvasc] 10 mg PO DAILY 30 Days 10/13/16 risperiDONE [RisperDAL Tab] 0.5 mg PO Q12 #60 tab 10/13/16 Dicyclomine [Dicyclomine HCl] 10 mg PO TID #15 cap 11/12/16 Famotidine [Pepcid] 20 mg PO DAILY 11/12/16 Lactulose [Constulose] 11/12/16 Lisinopril [Zestril] 20 mg PO DAILY 11/12/16 Simvastatin [Zocor] 20 mg PO HS 11/12/16 metFORMIN [glucOPHAGE] 500 mg PO BID 11/12/16 - Allergies Allergies/Adverse Reactions: Allergies Allergy/AdvReac Type Severity Reaction Status Date / Time No Known Allergies Allergy Verified 11/12/16 14:50 Review of Systems ROS Statement: Except As Marked, All Systems Reviewed And Found Negative (as per HPI) Musculoskeletal: Positive for: Other (Chronic pain at abdomen, back, and rest of body) Psych: Positive for: Depression. Negative for: Suicidal ideation Physical Exam - Reviewed Nursing Documentation Reviewed: Yes Vital Signs Reviewed: Yes - Physical Exam Appears: Positive for: Non-toxic, No Acute Distress Head Exam: Positive for: ATRAUMATIC, NORMOCEPHALIC Skin: Positive for: Warm, Dry Eye Exam: Positive for: EOMI, PERRL ENT: Negative for: Pharyngeal Erythema, Tonsillar Exudate Neck: Positive for: Painless ROM, Supple Cardiovascular/Chest: Positive for: Regular Rate, Rhythm. Negative for: Murmur Respiratory: Positive for: Normal Breath Sounds. Negative for: Respiratory Distress Gastrointestinal/Abdominal: Positive for: Soft. Negative for: Tenderness Back: Positive for: Normal Inspection. Negative for: L CVA Tenderness, R CVA Tenderness, Decreased ROM Extremity: Positive for: Normal ROM. Negative for: Deformity Neurologic/Psych: Positive for: Alert, Oriented, Mood/Affect (angry mood, at times sad and at time angry affect). Negative for: Motor/Sensory Deficits - Laboratory Results Result Diagrams: 12/05/16 20:52 12/05/16 20:52 - ECG O2 Sat by Pulse Oximetry: 98 (RA) Pulse Ox Interpretation: Normal Medical Decision Making Medical Decision Making: Impression: Depression, chronic pain, adjustment reaction Time: 20:42 Initial Plan: --Ordered labs --Patient will have crisis evaluation --Placed on ED OBS due to time-extensive work up *See ED-OBS tab for further documentation 00:22: Sign out to Dr. Alonso pending crisis evaluation. Scribe Attestation: Documented by Kirti Johnson and Uma Mederos, acting as a scribe for Jacqui Ahumada MD Provider Scribe Attestation: All medical record entries made by the Scribe were at my direction and personally dictated by me. I have reviewed the chart and agree that the record accurately reflects my personal performance of the history, physical exam, medical decision making, and the department course for this patient. I have also personally directed, reviewed, and agree with the discharge instructions and disposition. ED OBSERVATION Date of observation admission: 12/05/16 Time of observation admission: 20:46 - Observation admission statement Patient is being placed in observation because:: Depression - Goals of Observation Goals of observation are:: Crisis evaluation, time-extensive work up - Progress Note Progress Note: 12/05/16 Time: 20:46 --Patient is resting. Vital signs stable. Time: 22:11 --Patient continuing to complain of pain --Given Toradol 15 mg IM and Tylenol 975 mg PO Time: 22:15 --Patient resting. Vital signs are stable. 12/06/16 00:22 -- Patient resting comfortably. Vitals are stable. Disposition - Clinical Impression Clinical Impression: Adjustment disorder - Patient ED Disposition Is Patient to be Admitted: Transfer of Care - Disposition Disposition Time: 20:45 Condition: STABLE
[2016-12-05 21:11] LABS: ALB/GLOB RATIO 1.6 (1.0-2.1); ALCOHOL SERUM < 10 mg/dl (0-10); ALKALINE PHOSPHATASE 44 U/L (38-126); ALT/SGPT 27 U/L (9-52); AST/SGOT 22 U/L (14-36); BILIRUBIN,TOTAL 0.5 mg/dl (0.2-1.3); BLOOD UREA NITROGEN 13 mg/dl (7-17); CALCIUM 9.4 mg/dL (8.4-10.2); CARBON DIOXIDE 26 mmol/L (22-30); CHLORIDE 104 mmol/L (98-107); GFR AFRICAN-AMERICAN > 60; GLUCOSE,RANDOM 135 mg/dL (65-105); MAGNESIUM 1.7 MG/DL (1.6-2.3); PHOSPHOROUS 3.2 mg/dl (2.5-4.5); POTASSIUM 4.5 MMOL/L (3.6-5.0); SODIUM 139 mmol/l (132-148); TOTAL PROTEIN 6.6 G/DL (6.3-8.2)
[2016-12-05 21:40] LABS: THYROID STIMULATING HORMONE 0.02 mIU/ML (0.46-4.68)
--- NOTE | 2016-12-06 00:56 | ED PDOC ---
- Laboratory Results Result Diagrams: 12/05/16 20:52 12/05/16 20:52 - ECG O2 Sat by Pulse Oximetry: 98 (RA) Medical Decision Making Medical Decision Makin:22: Transfer of staff from Dr. Ahumada pending crisis evaluation. 02:04: patient was evaluated by crisis and she will be discharged home. Scribe Attestation Documented by Uma Mederos acting as a scribe for Dr. Alonso. Provider Attestation: All medical record entries made by the Scribe were at my direction and personally dictated by me. I have reviewed the chart and agree that the record accurately reflects my personal performance of the history, physical exam, medical decision making, and the department course for this patient. I have also personally directed, reviewed, and agree with the discharge instructions and disposition. Disposition Doctor Will See Patient In The: Office Counseled Patient/Family Regarding: Studies Performed, Diagnosis, Need For Followup - Clinical Impression Clinical Impression: Adjustment disorder - POA Present On Arrival: None - Disposition Disposition: Routine/Home Disposition Time: 02:05 Condition: GOOD
[2016-12-06 02:58] VITALS: BP 135/80; PULSE 75; RESP 16; TEMP 97.9
[2016-12-06 03:38] VITALS: O2SAT 98
== END 2016-12-06 02:58 | disposition home or self-care (01) ==
LOC: H.ER 20:20 → H.EROBSV 20:46
PROVIDERS: ADMIT Emergency Medicine; ATTEND Emergency Medicine
DX: F32.9 Major depressive disorder, single episode, unspecified (principal); G89.29 Other chronic pain; E11.9 Type 2 diabetes mellitus without complications; E78.00 Pure hypercholesterolemia, unspecified; E78.5 Hyperlipidemia, unspecified; F03.90 Unspecified dementia, unspecified severity, without behavioral disturbance, psychotic disturbance, mood disturbance, and anxiety; I10 Essential (primary) hypertension; D64.9 Anemia, unspecified; F41.9 Anxiety disorder, unspecified; K29.70 Gastritis, unspecified, without bleeding; M19.90 Unspecified osteoarthritis, unspecified site; F43.20 Adjustment disorder, unspecified; Z79.82 Long term (current) use of aspirin; Z79.899 Other long term (current) drug therapy; Z79.84 Long term (current) use of oral hypoglycemic drugs
CPT/HCPCS: 80053; 83735; 84100; 84443; 85025; 96372; 99282; G0378; G0480; J1885

== ENCOUNTER 2016-12-13 16:10 | Emergency (ER) | payer MEDICARE, MEDICAID ==
[2016-12-13 16:10] VITALS: BMI 27.4
[2016-12-13 16:18] VITALS: BP 147/82; PULSE 70; RESP 16; TEMP 98.3; O2SAT 99
--- NOTE | 2016-12-13 17:08 | ED PDOC ---
- ECG O2 Sat by Pulse Oximetry: 99 (RA) Pulse Ox Interpretation: Normal Medical Decision Making Medical Decision Making: Time: 1700 --Patient was endorsed to provider by Dr. Kristy Marie. Pending CT results and disposition. Able to be discharged home if CT results are negative. 173 CT HEAD FINDINGS HEMORRHAGE: No intracranial hemorrhage. 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 There is also old lacunar infarct at the right lentiform nucleus. Mild to moderate atrophy and chronic microvascular white matter ischemic disease are again seen. VENTRICLES: Unremarkable. No hydrocephalus. CALVARIUM: Unremarkable. PARANASAL SINUSES: Unremarkable as visualized. No significant inflammatory changes. MASTOID AIR CELLS: Unremarkable as visualized. No inflammatory changes. OTHER FINDINGS: None. IMPRESSION: No evidence of acute intracranial hemorrhage intracranial collection mass effect or midline shift. No significant interval change when compared to the previous study dated 10/02/[address] CERVICAL SPINE FINDINGS: VERTEBRAE: No fracture. Normal alignment. No destructive bony lesion. DISCS/SPINAL CANAL/NEURAL FORAMINA: Multilevel osteophyte disc bulging complex associated with spinal and neural foraminal narrowing more prominent at C3-C4 C4-C5 and C6-C7. Mild narrowing of the disc heights noted at C3-C4 and C4-C5. Mild degenerative disc changes. PARASPINAL SOFT TISSUES: The thyroid gland is mildly to moderately enlarged extending to the thoracic inlet. OTHER FINDINGS: None. IMPRESSION: No evidence of acute displaced fracture or subluxation. Mild degenerative disc changes. Multilevel osteophyte disc bulging complex associated with mild spinal and neural foraminal narrowing. Patient made aware of results. Need for outpatient orthopedic follow up expressed. Upon re-evaluation, patient is feeling much better and is stable for discharge. Scribe Attestation: Documented by Miriam Bonilla, acting as a scribe for Sejal Agosto MD. Provider Scribe Attestation: All medical record entries made by the scribe were at my direction and personally dictated by me. I have reviewed the chart and agree that the record accurately reflects my personal performance of the history, physical exam, medical decision making, and the department course for this patient. I have also personally directed, reviewed, and agree with the discharge instructions and disposition. Disposition - Clinical Impression Clinical Impression: Fall - POA Present On Arrival: None - Disposition Referrals: Aniceto Charles III, MD [Staff Provider] - Disposition: Routine/Home Disposition Time: 18:30 Condition: IMPROVED Additional Instructions: follow up with your primary doctor in 1-2 days follow up with orthopedist for further evaluation of findings of CT as discussed return to the ED with any worsening or concerning symptoms. Instructions: Fall Prevention for Older Adults (ED), Fall Prevention (ED) Forms: [employer] (Sudanese)
--- NOTE | 2016-12-13 17:38 | CT ---
PROCEDURE: CT HEAD WITHOUT CONTRAST. HISTORY: Head injury COMPARISON: Comparison is made to 10/02/2016 TECHNIQUE: Axial computed tomography images were obtained through the head/brain without intravenous contrast. Radiation dose: Total exam DLP = 769.7 mGy-cm. This CT exam was performed using one or more of the following dose reduction techniques: Automated exposure control, adjustment of the mA and/or kV according to patient size, and/or use of iterative reconstruction technique. FINDINGS: HEMORRHAGE: No intracranial hemorrhage. 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 There is also old lacunar infarct at the right lentiform nucleus. Mild to moderate atrophy and chronic microvascular white matter ischemic disease are again seen. VENTRICLES: Unremarkable. No hydrocephalus. CALVARIUM: Unremarkable. PARANASAL SINUSES: Unremarkable as visualized. No significant inflammatory changes. MASTOID AIR CELLS: Unremarkable as visualized. No inflammatory changes. OTHER FINDINGS: None. IMPRESSION: No evidence of acute intracranial hemorrhage intracranial collection mass effect or midline shift. No significant interval change when compared to the previous study dated 10/02/2016 as described above.
--- NOTE | 2016-12-13 18:15 | CT ---
PROCEDURE: CT Cervical Spine without contrast HISTORY: Fall COMPARISON: None available. TECHNIQUE: Axial computed tomography images were obtained of the cervical spine without the use of intravenous contrast. Coronal and sagittal reformatted images were created and reviewed. Radiation dose: Total exam DLP = 514.61 mGy-cm. This CT exam was performed using one or more of the following dose reduction techniques: Automated exposure control, adjustment of the mA and/or kV according to patient size, and/or use of iterative reconstruction technique. FINDINGS: VERTEBRAE: No fracture. Normal alignment. No destructive bony lesion. DISCS/SPINAL CANAL/NEURAL FORAMINA: Multilevel osteophyte disc bulging complex associated with spinal and neural foraminal narrowing more prominent at C3-C4 C4-C5 and C6-C7. Mild narrowing of the disc heights noted at C3-C4 and C4-C5. Mild degenerative disc changes. PARASPINAL SOFT TISSUES: The thyroid gland is mildly to moderately enlarged extending to the thoracic inlet. OTHER FINDINGS: None. IMPRESSION: No evidence of acute displaced fracture or subluxation. Mild degenerative disc changes. Multilevel osteophyte disc bulging complex associated with mild spinal and neural foraminal narrowing.
== END 2016-12-13 19:16 | disposition home or self-care (01) ==
LOC: H.ER 16:10
DX: R51 Headache (principal); W19.XXXA Unspecified fall, initial encounter

== ENCOUNTER 2016-12-21 13:12 | Emergency (ER) | payer MEDICARE, MEDICAID ==
[2016-12-21 13:14] VITALS: BMI 27.4
[2016-12-21 13:23] VITALS: O2SAT 99
--- NOTE | 2016-12-21 13:45 | ED PDOC ---
HPI: Psych/Substance Abuse Time Seen by Provider: 12/21/16 13:31 Chief Complaint (Nursing): Chest Pain Chief Complaint (Provider): Chest pain History Per: Patient Additional Complaint(s): Ghada is a 76 y/o female who presents to the ED for psychiatric evaluation for depression and anxiety. Pt arrives screaming and crying, reports patient has been saying I want to repeatedly at home. She has been suffering from chronic pain for the past 2 months over her entire body. Evaluation in the past has not demonstrated a source for this pain. Pt appears very tearful and anxious. Past Medical History Reviewed: Historical Data, Nursing Documentation, Vital Signs Vital Signs: Last Vital Signs Temp Pulse 74 12/21/16 13:21 Resp 22 12/21/16 13:21 BP 150/76 12/21/16 13:21 Pulse Ox 99 12/21/16 13:21 - Medical History PMH: Anemia, Anxiety, Arthritis, Dementia, Depression, Diabetes (type II), Gastritis, HTN, Hypercholesterolemia, Hyperlipidemia, Chronic Pain Denies: Hepatitis, HIV, Chronic Kidney Disease, Seizures, Sexually Transmitted Disease - Surgical History Surgical History: Cholecystectomy - Family History Family History: States: Unknown Family Hx - Living Arrangements Living Arrangements: With Family - Social History Current smoker - smoking cessation education provided: No Alcohol: None Drugs: Denies - Home Medications Home Medications: Ambulatory Orders Medication Instructions Recorded Escitalopram [Lexapro] 1 tab PO DAILY #30 tab 04/30/16 ALPRAZolam [Xanax] 0.25 mg PO Q12 PRN #30 tab 10/13/16 Aspirin [Aspirin Chewable] 1 tab PO DAILY #30 chew 10/13/16 Fenofibrate [Tricor] 48 mg PO DAILY #30 tab 10/13/16 Memantine [Namenda] 5 mg PO DAILY #30 tab 10/13/16 Pantoprazole [Protonix EC Tab] 40 mg PO DAILY #30 ect 10/13/16 Simethicone [Mylicon Chew Tab] 80 mg PO TID PRN #60 10/13/16 Sucralfate [Carafate] 1 gm PO Q6 PRN #120 10/13/16 Valsartan [Diovan] 160 mg PO DAILY #30 tab 10/13/16 amLODIPine [Norvasc] 10 mg PO DAILY 30 Days tab 10/13/16 risperiDONE [RisperDAL Tab] 0.5 mg PO Q12 #60 tab 10/13/16 Dicyclomine [Dicyclomine HCl] 10 mg PO TID #15 cap 11/12/16 Famotidine [Pepcid] 20 mg PO DAILY 11/12/16 Lactulose [Constulose] 11/12/16 Lisinopril [Zestril] 20 mg PO DAILY 11/12/16 Simvastatin [Zocor] 20 mg PO HS 11/12/16 metFORMIN [glucOPHAGE] 500 mg PO BID 11/12/16 Lorazepam [Ativan] 1 mg PO HS #3 tablet 12/21/16 - Allergies Allergies/Adverse Reactions: Allergies Allergy/AdvReac Type Severity Reaction Status Date / Time No Known Allergies Allergy Verified 11/12/16 14:50 Review of Systems ROS Statement: Except As Marked, All Systems Reviewed And Found Negative Psych: Positive for: Anxiety, Depression Physical Exam - Reviewed Nursing Documentation Reviewed: Yes Vital Signs Reviewed: Yes - Physical Exam Appears: Positive for: Well, Non-toxic, No Acute Distress Head Exam: Positive for: ATRAUMATIC, NORMAL INSPECTION, NORMOCEPHALIC Skin: Positive for: Normal Color, Warm, DRY Eye Exam: Positive for: EOMI, Normal appearance, PERRL ENT: Positive for: Normal ENT Inspection Neck: Positive for: Normal, Painless ROM Cardiovascular/Chest: Positive for: Regular Rate, Rhythm Respiratory: Positive for: CNT, Normal Breath Sounds Gastrointestinal/Abdominal: Positive for: Normal Exam, Bowel Sounds, Soft Back: Positive for: Normal Inspection Extremity: Positive for: Normal ROM Neurologic/Psych: Positive for: Alert, Oriented - Laboratory Results Result Diagrams: 12/21/16 14:00 12/21/16 14:00 - ECG O2 Sat by Pulse Oximetry: 99 Medical Decision Making Medical Decision Making: Pt calm and cooperative with chart writer after she was advised to take deep breaths. IV access established and treatment initiated with Ativan. On re-eval, Pt very calm and cooperative. Pt smiling, reports :pain gone." labs resulted and reviewed with Pt who demonstrated full understanding. Pt underwent crisis eval w/ Yamilka. Stable for discharge at this time Disposition - Clinical Impression Clinical Impression: Anxiety - Patient ED Disposition Is Patient to be Admitted: No - Disposition Disposition: Routine/Home Disposition Time: 19:17 Condition: GOOD Prescriptions: Lorazepam [Ativan] 1 mg PO HS #3 tablet Instructions: Anxiety (ED) Forms: [employer] (Czech)
[2016-12-21 14:16] LABS: BASO % 1.1 % (0.0-2.0); EOS # 0.1 K/uL (0.0-0.7); EOS % 1.3 % (0.0-4.0); HEMATOCRIT 34.2 % (34.0-47.0); LYMPH # 1.3 K/uL (1.0-4.3); LYMPH % 27.2 % (20.0-40.0); MEAN CELL VOLUME 86.1 fl (81.0-99.0); MEAN CORPUSCULAR HEMOGLOBIN 28.8 pg (27.0-31.0); MEAN CORPUSCULAR HGB CONC 33.5 g/dL (33.0-37.0); MEAN PLATELET VOLUME 8.6 fl (7.2-11.7); MONO # 0.5 K/uL (0.0-0.8); MONO % 11.2 % (0.0-10.0); NEUT # 2.8 K/uL (1.8-7.0); NEUT % 59.2 % (50.0-75.0); NRBC % 0.1 % (0.0-0.0); RED CELL DISTRIBUTION WIDTH 13.9 % (11.5-14.5); WHITE BLOOD COUNT 4.7 K/uL (4.8-10.8)
[2016-12-21 14:17] LABS: RBC URINE < 1 /hpf (0-3); URINE BACTERIA RARE (<OCC); URINE BILIRUBIN NEGATIVE (NEGATIVE); URINE BLOOD NEGATIVE (NEGATIVE); URINE COLOR STRAW (YELLOW); URINE GLUCOSE (UA) NEG (Normal); URINE KETONE NEGATIVE (NEGATIVE); URINE LEUKOCYTE ESTERASE NEG Leu/uL (Negative); URINE PROTEIN NEGATIVE (NEGATIVE); URINE UROBILINOGEN 0.2-1.0 mg/dL (0.2-1.0); WBC URINE < 1 /hpf (0-5)
[2016-12-21 14:22] LABS: ALB/GLOB RATIO 1.7 (1.0-2.1); ALCOHOL SERUM < 10 mg/dl (0-10); ALKALINE PHOSPHATASE 48 U/L (38-126); ALT/SGPT 24 U/L (9-52); AST/SGOT 19 U/L (14-36); BILIRUBIN,TOTAL 0.5 mg/dl (0.2-1.3); BLOOD UREA NITROGEN 11 mg/dl (7-17); CALCIUM 9.6 mg/dL (8.4-10.2); CARBON DIOXIDE 24 mmol/L (22-30); CHLORIDE 105 mmol/L (98-107); GFR AFRICAN-AMERICAN > 60; GLUCOSE,RANDOM 123 mg/dL (65-105); POTASSIUM 3.8 MMOL/L (3.6-5.0); SODIUM 146 mmol/l (132-148); TOTAL PROTEIN 6.9 G/DL (6.3-8.2)
--- NOTE | 2016-12-21 15:01 | RAD ---
PROCEDURE: CHEST RADIOGRAPH, 1 VIEW HISTORY: med screening COMPARISON: 10/06/2016. FINDINGS: LUNGS: Clear. PLEURA: No pneumothorax or pleural fluid seen. CARDIOVASCULAR: No radiographic findings to suggest acute or significant cardiovascular disease. OSSEOUS STRUCTURES: No significant abnormalities. VISUALIZED UPPER ABDOMEN: Normal. OTHER FINDINGS: None. IMPRESSION: No active disease. No acute/significant interval changes.
[2016-12-21 18:22] VITALS: RESP 16
[2016-12-21 19:17] VITALS: BP 119/77; PULSE 84
--- NOTE | 2016-12-22 09:30 | CARD ---
APPROVED REPORT EKG Measurement Heart [id number] <Conclusion> Normal sinus rhythm Cannot rule out Anterior infarct, age undetermined Abnormal ECG
== END 2016-12-21 19:16 | disposition home or self-care (01) ==
LOC: H.ER 13:12
DX: F41.9 Anxiety disorder, unspecified (principal); F32.3 Major depressive disorder, single episode, severe with psychotic features; G89.4 Chronic pain syndrome
CPT/HCPCS: 71010; 80053; 81003; 84484; 85025; 93005; 96374; 99282; G0480; J2060

== ENCOUNTER 2016-12-22 06:28 | Emergency (ER) | payer MEDICARE, MEDICAID ==
[2016-12-22 06:28] VITALS: BMI 27.4
[2016-12-22 06:32] VITALS: O2SAT 97
--- NOTE | 2016-12-22 06:52 | ED PDOC ---
Arrival/HPI - General Chief Complaint: Pain, Chronic Time Seen by Provider: 12/22/16 06:29 Historian: Patient - History of Present Illness Narrative History of Present Illness (Text): 12/22/16 06:47 Ghada Gomez is a 76 year old female, with a past medical history of depression and HTN, who was brought to the emergency department by EMS complaining of body aches onset since last night. Patient came in screaming and crying saying that she has had chronic pain in the last several months. Patient has been admitted previously for depression. Patient denied medical problems but upon review of charts has a history of anxiety, depression, hypercholesterolemia, and chronic pain. She was agitated upon arrival but she is calmer now that she is in bed. She denies any fever, nausea, vomit, diarrhea, chest pain, shortness of breath, suicidal or homicidal ideations. PMD: None provided. Time/Duration: 24 hours Past Medical History - Provider Review Nursing Documentation Reviewed: Yes - Infectious Disease Hx of Infectious Diseases: None - Tetanus Immunization Tetanus Immunization: Unknown - Cardiac Hx Hypertension: Yes - Pulmonary Hx Tuberculosis: No - Neurological Hx Dementia: Yes Hx Seizures: No - HEENT Hx HEENT Disorder: No - Renal Hx Renal Disorder: No - Endocrine/Metabolic Hx Endocrine Disorders: Yes Hx Diabetes Mellitus Type 2: Yes - Hematological/Oncological Hx Anemia: Yes - Integumentary Hx Dermatological Disorder: No - Musculoskeletal/Rheumatological Hx Arthritis: Yes - Gastrointestinal Hx Gastritis: Yes - Genitourinary/Gynecological Hx Sexually Transmitted Diseases: No - Psychiatric Hx Anxiety: Yes Hx Depression: Yes Hx Substance Use: No - Surgical History Hx Cholecystectomy: Yes - Anesthesia Hx Anesthesia: Yes Hx Anesthesia Reactions: No Family/Social History Family/Social History: No Known Family HX Smoking Status: Never Smoked Hx Alcohol Use: No Hx Substance Use: No Allergies/Home Meds Allergies/Adverse Reactions: Allergies No Known Allergies Allergy (Verified 11/12/16 14:50) Home Medications: Home Meds Medication Instructions Recorded Confirmed Famotidine [Pepcid] 20 mg PO DAILY 11/12/16 11/12/16 Lactulose [Constulose] 11/12/16 Lisinopril [Zestril] 20 mg PO DAILY 11/12/16 11/12/16 Simvastatin [Zocor] 20 mg PO HS 11/12/16 11/12/16 metFORMIN [glucOPHAGE] 500 mg PO BID 11/12/16 11/12/16 Review of Systems - Physician Review All systems were reviewed & negative as marked: Yes - Review of Systems Constitutional: Other (body aches). absent: Fevers Respiratory: absent: SOB Cardiovascular: absent: Chest Pain Gastrointestinal: absent: Diarrhea, Vomiting Psychiatric: absent: Suicidal Ideation (or homicidal ideation) Physical Exam Vital Signs Reviewed: Yes Vital Signs Temp Pulse Resp BP Pulse Ox 12/22/16 06:30 98.6 F 72 17 127/74 97 - Systems Exam Head: Present: Atraumatic, Normocephalic Pupils: Present: PERRL Extroacular Muscles: Present: EOMI Conjunctiva: Present: Normal Neck: Present: Normal Range of Motion Respiratory/Chest: Present: Clear to Auscultation, Good Air Exchange. No: Respiratory Distress, Accessory Muscle Use Cardiovascular: Present: Regular Rate and Rhythm. No: Murmurs Abdomen: Present: Normal Bowel Sounds. No: Tenderness, Distention, Peritoneal Signs Back: Present: Normal Inspection Upper Extremity: Present: Normal Inspection. No: Cyanosis, Edema Lower Extremity: Present: Normal Inspection. No: Edema Neurological: Present: GCS=15, CN II-XII Intact, Speech Normal Skin: Present: Warm, Dry, Normal Color. No: Rashes Psychiatric: Present: Alert, Oriented x 3, Normal Insight, Normal Concentration Medical Decision Making ED Course and Treatment: 12/22/16 06:58 Initial Impression: Agitation and chronic pain Initial Plan: --Tylenol 650 mg tab --Ativan 1 mg PO --reevaluation Scribe Attestation: Documented by Pedro Hendricks, acting as a scribe for Sejal Agosto MD Provider Scribe Attestation: All medical record entries made by the Scribe were at my direction and personally dictated by me. I have reviewed the chart and agree that the record accurately reflects my personal performance of the history, physical exam, medical decision making, and the department course for this patient. I have also personally directed, reviewed, and agree with the discharge instructions and disposition. 12/22/16 09:02 Upon reevaluation, patient resting in room and is in no acute distress. 12/22/16 09:16 Patient refused crisis evaluation. Patient stable for discharge home. - Medication Orders Current Medication Orders: Discontinued Medications Acetaminophen (Tylenol 325mg Tab) 650 mg PO STAT STA Stop: 12/22/16 06:47 Last Admin: 12/22/16 06:52 Dose: 650 mg MAR Pain/Vitals Document 12/22/16 06:52 EBD (Rec: 12/22/16 06:54 EBD [id number]) Pain Reassessment Is This A Pain ReAssessment? No Sleep Is patient sleeping during reassessment? No Presence of Pain Presence of Pain Yes Pain Scale Used Pain Scale Used Numeric Location Intensity 8 Scale Used Numeric Pain Behavior Crying Restlessness Lorazepam (Ativan) 1 mg PO STAT STA Stop: 12/22/16 06:56 Last Admin: 12/22/16 06:57 Dose: 1 mg Disposition/Present on Arrival - Present on Arrival Any Indicators Present on Arrival: No History of DVT/PE: No History of Uncontrolled Diabetes: No Urinary Catheter: No - Disposition Have Diagnosis and Disposition been Completed?: Yes Diagnosis: Depression Disposition: HOME/ ROUTINE Disposition Time: 09:16 Patient Problems: Current Active Problems Problem Status Onset Depression Acute Condition: IMPROVED Discharge Instructions (ExitCare): Depression (ED) Additional Instructions: follow up with your primary doctor in 1-2 days return to the ED with any worsening or concerning symptoms Referrals: [facility] [Outside] [facility] [Outside] Forms: [employer] (Palauan)
[2016-12-22 09:22] VITALS: BP 126/71; PULSE 78; RESP 15; TEMP 98.4
== END 2016-12-22 09:21 | disposition home or self-care (01) ==
LOC: H.ER 06:28
DX: F32.9 Major depressive disorder, single episode, unspecified (principal); Z86.59 Personal history of other mental and behavioral disorders; Z00.8 Encounter for other general examination; E11.9 Type 2 diabetes mellitus without complications; I10 Essential (primary) hypertension

== ENCOUNTER 2017-09-20 07:47 | Emergency (ER) | payer MEDICARE, MEDICAID ==
[2017-09-20 07:48] VITALS: BMI 25.6
--- NOTE | 2017-09-20 08:51 | ED PDOC ---
HPI: Abdomen Time Seen by Provider: 09/20/17 08:02 Chief Complaint (Nursing): Abdominal Pain Chief Complaint (Provider): abdominal pain History Per: Patient History/Exam Limitations: no limitations Onset/Duration Of Symptoms: Days (x1 week) Current Symptoms Are (Timing): Still Present Quality Of Discomfort: "Pain" Associated Symptoms: Chills, Diarrhea. denies: Fever, Nausea, Vomiting, Back Pain, Chest Pain Additional Complaint(s): Ghada Gomez is a 76 year old female, with a past medical history of hypertension, anemia, arthritis and diabetes, who was brought to the emergency department by EMS for a worsening abdominal pain associated with diarrhea onset for x1 week. Patient states her last episode of diarrhea was yesterday. Patient reports she has chronic body pains and was recently seen by PMD for her back. She also reports chills and mild dysuria but denies any nausea, vomiting, bloody stools, chest pain, shortness of breath or fever. No further medical complaints. PMD: Tulio Gomez Past Medical History Reviewed: Historical Data, Nursing Documentation, Vital Signs Vital Signs: Last Vital Signs Temp 98.7 F 09/20/17 07:48 Pulse 82 09/20/17 07:48 Resp 17 09/20/17 07:48 BP 134/82 09/20/17 07:48 Pulse Ox 97 09/20/17 09:43 - Medical History PMH: Anemia, Anxiety, Arthritis, Dementia, Depression, Diabetes (type II), Gastritis, HTN, Hypercholesterolemia, Hyperlipidemia, Chronic Pain Denies: Hepatitis, HIV, Chronic Kidney Disease, Seizures, Sexually Transmitted Disease - Surgical History Surgical History: Cholecystectomy - Family History Family History: States: Unknown Family Hx - Social History Current smoker - smoking cessation education provided: No Alcohol: None Drugs: Denies - Home Medications Home Medications: Ambulatory Orders Medication Instructions Recorded Escitalopram [Lexapro] 1 tab PO DAILY #30 tab 04/30/16 ALPRAZolam [Xanax] 0.25 mg PO Q12 PRN #30 tab 10/13/16 Aspirin [Aspirin Chewable] 1 tab PO DAILY #30 chew 10/13/16 Fenofibrate [Tricor] 48 mg PO DAILY #30 tab 10/13/16 Memantine [Namenda] 5 mg PO DAILY #30 tab 10/13/16 Pantoprazole [Protonix EC Tab] 40 mg PO DAILY #30 ect 10/13/16 Simethicone [Mylicon Chew Tab] 80 mg PO TID PRN #60 10/13/16 Sucralfate [Carafate] 1 gm PO Q6 PRN #120 10/13/16 Valsartan [Diovan] 160 mg PO DAILY #30 tab 10/13/16 amLODIPine [Norvasc] 10 mg PO DAILY 30 Days tab 10/13/16 risperiDONE [RisperDAL Tab] 0.5 mg PO Q12 #60 tab 10/13/16 Dicyclomine [Dicyclomine HCl] 10 mg PO TID #15 cap 11/12/16 Famotidine [Pepcid] 20 mg PO DAILY 11/12/16 Lactulose [Constulose] 11/12/16 Lisinopril [Zestril] 20 mg PO DAILY 11/12/16 Simvastatin [Zocor] 20 mg PO HS 11/12/16 metFORMIN [glucOPHAGE] 500 mg PO BID 11/12/16 Lorazepam [Ativan] 1 mg PO HS #3 tablet 12/21/16 - Allergies Allergies/Adverse Reactions: Allergies Allergy/AdvReac Type Severity Reaction Status Date / Time No Known Allergies Allergy Verified 09/20/17 08:11 Review of Systems ROS Statement: Except As Marked, All Systems Reviewed And Found Negative Constitutional: Positive for: Chills, Other (chronic body pains). Negative for : Fever Cardiovascular: Negative for: Chest Pain Respiratory: Negative for: Shortness of Breath Gastrointestinal: Positive for: Abdominal Pain, Diarrhea. Negative for: Nausea , Vomiting, Hematochezia Genitourinary Female: Positive for: Dysuria (mild) Physical Exam - Reviewed Nursing Documentation Reviewed: Yes Vital Signs Reviewed: Yes - Physical Exam Appears: Positive for: Non-toxic Head Exam: Positive for: ATRAUMATIC, NORMOCEPHALIC Skin: Positive for: Normal Color, Warm, Dry Eye Exam: Positive for: Normal appearance, EOMI, PERRL Neck: Positive for: Painless ROM, Supple Cardiovascular/Chest: Positive for: Regular Rate, Rhythm. Negative for: Murmur Respiratory: Positive for: Normal Breath Sounds (clear to auscultation). Negative for: Respiratory Distress Gastrointestinal/Abdominal: Positive for: Bowel Sounds (active), Tenderness ( RUQ & mid epigastric) Back: Negative for: L CVA Tenderness, R CVA Tenderness, Vertebral Tenderness Extremity: Positive for: Normal ROM (upper and lower extremities). Negative for : Deformity, Swelling Neurologic/Psych: Positive for: Alert, Oriented. Negative for: Motor/Sensory Deficits - Laboratory Results Result Diagrams: 09/20/17 09:10 09/20/17 09:10 - ECG O2 Sat by Pulse Oximetry: 97 (RA) Pulse Ox Interpretation: Normal - Radiology X-Ray: Read By Radiologist X-Ray Interpretation: No Acute Disease Medical Decision Making Medical Decision Making: Time: 08:02 Initial Impression: abdominal pain Initial Plan: --CMP --Lipase --Urine dipstick --CBC w/ differential --Obstructive series [RAD] --Pepcid Premix 20 mg in 50 ml IVPB --Abdomen Complete [US] --Reevaluation 09:16 Obstructive series FINDINGS: CHEST: Lungs: Clear. Cardiovascular: Mild left ventricular enlargement configuration. No pulmonary vascular congestion. Pleura: No pleural fluid. No pneumothorax. Other findings: None. ABDOMEN AND PELVIS: Bowel: Moderate stool retention. No evidence of mechanical obstruction. Free air: None. 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 Additional right paracentral surgical clip. IMPRESSION: No pulmonary infiltrate. No evidence of mechanical bowel obstruction. Moderate stool retention. Postsurgical status Scribe Attestation: Documented by Pedro Hendricks acting as a scribe for Joan Hawk MD. Scribe Attestation: All medical record entries made by the Scribe were at my direction and personally dictated by me. I have reviewed the chart and agree that the record accurately reflects my personal performance of the history, physical exam, medical decision making, and the department course for this patient. I have also personally directed, reviewed, and agree with the discharge instructions and disposition. 10.15a - patient feeling okay. anxious about colonoscopy that was done months ago. x-rays c/w flatulence and stool. Disposition - Clinical Impression Clinical Impression: Abdominal discomfort, Flatulence/gas pain/belching - Patient ED Disposition Is Patient to be Admitted: No Doctor Will See Patient In The: Office Counseled Patient/Family Regarding: Diagnosis, Need For Followup - Disposition Referrals: Tulio Gomez MD [Family Provider] - Disposition: Routine/Home Disposition Time: 10:29 Condition: STABLE Instructions: Constipation in Adults, High Fiber Diet Forms: [employer] ([place]er) Print Language: DIVEHI - POA Present On Arrival: None
[2017-09-20] MEDS ORDERED: Famotidine 20mg/50ml 20 MG/50 ML BAG IVPB ONE ×2 (09:00)
--- NOTE | 2017-09-20 09:18 | RAD ---
PROCEDURE: Radiographs of the chest and abdomen (obstructive series) HISTORY: upper abd pain COMPARISON: No prior. TECHNIQUE: AP radiograph of the chest, with upright and supine radiographs of the abdomen. FINDINGS: CHEST: Lungs: Clear. Cardiovascular: Mild left ventricular enlargement configuration. No pulmonary vascular congestion. Pleura: No pleural fluid. No pneumothorax. Other findings: None. ABDOMEN AND PELVIS: Bowel: Moderate stool retention. No evidence of mechanical obstruction. Free air: None. 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 Additional right paracentral surgical clip. IMPRESSION: No pulmonary infiltrate. No evidence of mechanical bowel obstruction. Moderate stool retention. Postsurgical status
[2017-09-20 09:29] LABS: BASO # 0.1 K/uL (0.0-0.2); BASO % 0.7 % (0.0-2.0); EOS # 0.1 K/uL (0.0-0.7); EOS % 0.8 % (0.0-4.0); HEMOGLOBIN 12.8 g/dL (12.0-16.0); LYMPH # 0.9 K/uL (1.0-4.3); LYMPH % 9.4 % (20.0-40.0); MEAN CELL VOLUME 89.4 fl (81.0-99.0); MEAN CORPUSCULAR HEMOGLOBIN 29.5 pg (27.0-31.0); MEAN PLATELET VOLUME 8.4 fl (7.2-11.7); MONO # 0.7 K/uL (0.0-0.8); MONO % 7.2 % (0.0-10.0); NEUT # 8.2 K/uL (1.8-7.0); NEUT % 81.9 % (50.0-75.0); PLATELET COUNT 216 K/uL (130-400); RBC 4.32 Mil/uL (3.80-5.20); RED CELL DISTRIBUTION WIDTH 14.2 % (11.5-14.5)
[2017-09-20 09:41] LABS: ALB/GLOB RATIO 1.4 (1.0-2.1); ALBUMIN 3.9 g/dL (3.5-5.0); ALT/SGPT 21 U/L (9-52); AST/SGOT 16 U/L (14-36); BLOOD UREA NITROGEN 18 mg/dl (7-17); CALCIUM 9.1 mg/dL (8.4-10.2); GFR AFRICAN-AMERICAN > 60; GFR NON-AFRICAN AMERICAN 54; LIPASE 61 U/L (23-300)
[2017-09-20 10:01] LABS: BASOPHIL 1 % (0-2); LYMPHOCYTE 8 % (20-50); MONOCYTE 7 % (0-10); NEUTROPHIL 84 % (42-75); TOTAL CELLS COUNTED 100
[2017-09-20 10:02] LABS: PLATELET ESTIMATE NORMAL (NORMAL)
--- NOTE | 2017-09-20 10:27 | US ---
HISTORY: upper and RUQ pain. COMPARISON: CT abdomen and pelvis 11/12/2016 and 06/11/2016 TECHNIQUE: Sonographic evaluation of the abdomen. FINDINGS: LIVER: Measures 13.2 cm. Normal echogenicity of the liver parenchyma. No mass. There is mild intrahepatic bile duct dilatation. This appearance is noted on the prior CT study. GALLBLADDER: Cholecystectomy. COMMON BILE DUCT: Measures 8.7 mm. No shadowing stones here are noted. Debris and/or of distal pathology not excluded. This has been noted to be previously prominent and is not fairly pathologic given patient's age and post cholecystectomy status. PANCREAS: Unremarkable as visualized. No mass. No ductal dilatation. RIGHT KIDNEY: Measures 11.2 x 5.0 x 5.0cm. Normal echogenicity. No calculus, solid mass, or hydronephrosis. An upper pole right renal cysts is noted measuring 1.9 x 2.3 x 1.8 cm. LEFT KIDNEY: Measures 11.2 x 4.9 x 4.9cm. Normal echogenicity. No calculus, mass, or hydronephrosis. SPLEEN: Normal in size and contour. No mass. AORTA: No aneurysmal dilatation. IVC: Unremarkable. OTHER FINDINGS: None. IMPRESSION: Status post cholecystectomy. Prominent common bile duct - however and not discordant with post cholecystectomy status and patient's 76 years of age. This prominence has been noted on prior CT exams. No proximal common bile duct stones noted. Distal debris or the distal pathology is not excluded. If further evaluation is needed consider MRCP Right upper pole benign-appearing renal cyst
[2017-09-20 15:19] VITALS: BP 132/76; PULSE 76; RESP 16; TEMP 97.8; O2SAT 98
== END 2017-09-20 15:00 | disposition home or self-care (01) ==
LOC: H.ER 07:47
DX: R14.3 Flatulence (principal); R14.1 Gas pain; R14.2 Eructation; E11.9 Type 2 diabetes mellitus without complications; F03.90 Unspecified dementia, unspecified severity, without behavioral disturbance, psychotic disturbance, mood disturbance, and anxiety; Z86.59 Personal history of other mental and behavioral disorders; G89.29 Other chronic pain; I10 Essential (primary) hypertension; Z79.82 Long term (current) use of aspirin; Z79.84 Long term (current) use of oral hypoglycemic drugs; Z90.49 Acquired absence of other specified parts of digestive tract; E78.00 Pure hypercholesterolemia, unspecified

== ENCOUNTER 2018-05-21 11:56 | Emergency (ER) | payer MEDICARE, MEDICAID ==
[2018-05-21 11:58] VITALS: BMI 25.3
[2018-05-21 13:02] LABS: BASO # 0.1 K/uL (0.0-0.2); BASO % 1.3 % (0.0-2.0); EOS # 0.1 K/uL (0.0-0.7); EOS % 1.6 % (0.0-4.0); HEMOGLOBIN 13.1 g/dL (12.0-16.0); LYMPH % 19.5 % (20.0-40.0); MEAN CELL VOLUME 87.7 fl (81.0-99.0); MEAN CORPUSCULAR HEMOGLOBIN 29.2 pg (27.0-31.0); MEAN CORPUSCULAR HGB CONC 33.3 g/dL (33.0-37.0); MEAN PLATELET VOLUME 8.7 fl (7.2-11.7); MONO # 0.5 K/uL (0.0-0.8); MONO % 8.6 % (0.0-10.0); NEUT # 3.6 K/uL (1.8-7.0); RBC 4.48 Mil/uL (3.80-5.20); RED CELL DISTRIBUTION WIDTH 14.3 % (11.5-14.5); WHITE BLOOD COUNT 5.3 K/uL (4.8-10.8)
--- NOTE | 2018-05-21 13:02 | ED PDOC ---
HPI: Female Pain Time Seen by Provider: 05/21/18 12:12 Chief Complaint (Provider): dysuria, frequency and abdominal pain History Per: Patient History/Exam Limitations: no limitations Onset/Duration Of Symptoms: Days (x2) Current Symptoms Are (Timing): Still Present Associated Symptoms: denies: Fever, Chills, Nausea, Vomiting, Diarrhea Additional Complaint(s): Ghada Gomez is a 77 year old female, with a past medical history of HTN and diabetes, who presents to the emergency department complaining of dysuria, frequency, lower abdominal pain and left flank pain ongoing for x2 days. She denies any fever, chills, nausea, vomiting, diarrhea or other medical complaint s. PMD: Kenrick Gomezustin Past Medical History Reviewed: Historical Data, Nursing Documentation, Vital Signs Vital Signs: Last Vital Signs Temp 99.3 F 05/21/18 11:59 Pulse 75 05/21/18 11:59 Resp 17 05/21/18 11:59 BP 158/115 H 05/21/18 11:59 Pulse Ox 97 05/21/18 11:59 - Medical History PMH: Anemia, Anxiety, Arthritis, Dementia, Depression, Diabetes (type II), Gastritis, HTN, Hypercholesterolemia, Hyperlipidemia, Chronic Pain Denies: Hepatitis, HIV, Chronic Kidney Disease, Seizures, Sexually Transmitted Disease - Surgical History Surgical History: Cholecystectomy - Family History Family History: States: Unknown Family Hx - Home Medications Home Medications: Ambulatory Orders Medication Instructions Recorded Escitalopram [Lexapro] 1 tab PO DAILY #30 tab 04/30/16 ALPRAZolam [Xanax] 0.25 mg PO Q12 PRN #30 tab 10/13/16 Aspirin [Aspirin Chewable] 1 tab PO DAILY #30 chew 10/13/16 Fenofibrate [Tricor] 48 mg PO DAILY #30 tab 10/13/16 Memantine [Namenda] 5 mg PO DAILY #30 tab 10/13/16 Pantoprazole [Protonix EC Tab] 40 mg PO DAILY #30 ect 10/13/16 Simethicone [Mylicon Chew Tab] 80 mg PO TID PRN #60 10/13/16 Sucralfate [Carafate] 1 gm PO Q6 PRN #120 10/13/16 Valsartan [Diovan] 160 mg PO DAILY #30 tab 10/13/16 amLODIPine [Norvasc] 10 mg PO DAILY 30 Days tab 10/13/16 risperiDONE [RisperDAL Tab] 0.5 mg PO Q12 #60 tab 10/13/16 Dicyclomine [Dicyclomine HCl] 10 mg PO TID #15 cap 11/12/16 Famotidine [Pepcid] 20 mg PO DAILY 11/12/16 Lactulose [Constulose] 11/12/16 Lisinopril [Zestril] 20 mg PO DAILY 11/12/16 Simvastatin [Zocor] 20 mg PO HS 11/12/16 metFORMIN [glucOPHAGE] 500 mg PO BID 11/12/16 Lorazepam [Ativan] 1 mg PO HS #3 tablet 12/21/16 Sulfamethoxazole/Trimethoprim 1 tab PO BID #20 tab 05/21/18 [Bactrim DS 800 mg-160 mg] - Allergies Allergies/Adverse Reactions: Allergies Allergy/AdvReac Type Severity Reaction Status Date / Time No Known Allergies Allergy Verified 09/20/17 08:11 Review of Systems ROS Statement: Except As Marked, All Systems Reviewed And Found Negative Constitutional: Negative for: Fever, Chills Gastrointestinal: Positive for: Abdominal Pain (lower), Other (left flank pain). Negative for: Nausea, Vomiting, Diarrhea Genitourinary Female: Positive for: Dysuria, Frequency Physical Exam - Reviewed Nursing Documentation Reviewed: Yes Vital Signs Reviewed: Yes - Physical Exam Appears: Positive for: No Acute Distress Head Exam: Positive for: ATRAUMATIC, NORMAL INSPECTION, NORMOCEPHALIC Skin: Positive for: Normal Color, Warm, Dry Eye Exam: Positive for: Normal appearance, EOMI, PERRL Neck: Positive for: Normal, Painless ROM, Supple Cardiovascular/Chest: Positive for: Regular Rate, Rhythm. Negative for: Murmur Respiratory: Positive for: Normal Breath Sounds. Negative for: Respiratory Distress Gastrointestinal/Abdominal: Positive for: Tenderness (suprapubic). Negative for: Guarding, Rebound Back: Positive for: Normal Inspection. Negative for: L CVA Tenderness, R CVA Tenderness Extremity: Positive for: Normal ROM (upper and lower extremities). Negative for: Deformity Neurologic/Psych: Positive for: Alert, Oriented - Laboratory Results Result Diagrams: 05/21/18 12:50 05/21/18 12:50 - ECG O2 Sat by Pulse Oximetry: 97 (RA) Pulse Ox Interpretation: Normal Medical Decision Making Medical Decision Making: Time: 12:12 Initial Impression: Will obtain urine and CBC to r/o pyelonephritis vs sepsis but unlikely given patient is afebrile and doesn't meet any other criteria for sepsis Initial Plan: --CMP --CBC w/ differential --Urine culture --UA --Reevaluation Scribe Attestation: Documented by Pedro Hendricks, acting as a scribe for Jack Houser MD Provider Scribe Attestation: All medical record entries made by the Scribe were at my direction and personally dictated by me. I have reviewed the chart and agree that the record accurately reflects my personal performance of the history, physical exam, medical decision making, and the department course for this patient. I have also personally directed, reviewed, and agree with the discharge instructions and disposition. Disposition - Clinical Impression Clinical Impression: UTI (urinary tract infection) - Patient ED Disposition Is Patient to be Admitted: No Counseled Patient/Family Regarding: Studies Performed, Diagnosis, Need For Followup, Rx Given - Disposition Referrals: [facility] [Outside] Disposition: Routine/Home Disposition Time: 15:50 Condition: FAIR Prescriptions: Sulfamethoxazole/Trimethoprim [Bactrim DS 800 mg-160 mg] 1 tab PO BID #20 tab Instructions: Urinary Tract Infections in Adults Print Language: TAJIK
[2018-05-21 13:18] LABS: ALB/GLOB RATIO 1.6 (1.0-2.1); ALBUMIN 3.9 g/dL (3.5-5.0); ALT/SGPT 17 U/L (9-52); AST/SGOT 18 U/L (14-36); BLOOD UREA NITROGEN 12 mg/dl (7-17); CALCIUM 9.8 mg/dL (8.4-10.2); GFR NON-AFRICAN AMERICAN > 60
[2018-05-21 15:46] LABS: SQUAMOUS EPITHIAL 47 /hpf (0-5); URINE BACTERIA RARE (<OCC); URINE BILIRUBIN NEGATIVE (NEGATIVE); URINE BLOOD NEGATIVE (NEGATIVE); URINE CLARITY CLOUDY (Clear); URINE COLOR YELLOW (YELLOW); URINE GLUCOSE (UA) NEG (NEGATIVE); URINE LEUKOCYTE ESTERASE LARGE Leu/uL (Negative); URINE PROTEIN NEGATIVE (NEGATIVE); URINE UROBILINOGEN 0.2-1.0 mg/dL (0.2-1.0)
[2018-05-21 18:15] VITALS: RESP 15
[2018-05-21 18:17] VITALS: BP 156/64; PULSE 80; TEMP 98.4; O2SAT 99
== END 2018-05-21 16:50 | disposition home or self-care (01) ==
LOC: H.ER 11:56
DX: N39.0 Urinary tract infection, site not specified (principal); E11.9 Type 2 diabetes mellitus without complications; E78.00 Pure hypercholesterolemia, unspecified; F03.90 Unspecified dementia, unspecified severity, without behavioral disturbance, psychotic disturbance, mood disturbance, and anxiety; F32.9 Major depressive disorder, single episode, unspecified; I10 Essential (primary) hypertension; Z79.84 Long term (current) use of oral hypoglycemic drugs; F41.9 Anxiety disorder, unspecified; G89.29 Other chronic pain; Z79.82 Long term (current) use of aspirin; Z79.899 Other long term (current) drug therapy

== ENCOUNTER 2018-07-02 13:35 | Emergency (ER) | payer MEDICARE, MEDICAID ==
[2018-07-02 13:35] VITALS: BMI 25.3
[2018-07-02] MEDS ORDERED: Lidocaine 5% Patch TD STA (14:09)
--- NOTE | 2018-07-02 14:11 | ED PDOC ---
Lower Extremity Pain/Injury Additional Complaint(s): 77 yo female pt with PMH of dementia, NIDDM, HTN, HLD and depression presents to the ED c/o L hip pain since 2 days ago. Patient endorses steady sharp pain 6/10, no radiated to the leg, no alleviating or aggravating factors, she took Meloxicam this am w/o relief. She denies any h/o of fall or recent injury, no weakness or tingling or numbness on leg. She endorses she use a rolling walker at home due to h/o of unsteady gait. PCP: Dr Tulio Gomez. <Ayaan Diaz - Last Filed: 07/02/18 15:45> <Jacqui Ahumada - Last Filed: 07/07/18 10:36> Chief Complaint (Nursing): Hip Pain Supervising Attending Note - Supervising Attending Note The Documented history was done by the: Physician Photonics Technician, Attending Physician The documented physical exam was done by the: Physician Photonics Technician, Attending Physician - Attestation: I have personally seen and examined this patient.: Yes I have fully participated in the care of the patient.: Yes I have reviewed all pertinent clinical information, including history, physical exam and plan: Yes - Notes: Notes:: Atraumatic hip pain with negative xrays. Exam with minimal tenderness and FROM. <Jacqui Ahumada - Last Filed: 07/07/18 10:36> Past Medical History Vital Signs: Last Vital Signs Temp 98.0 F 07/02/18 13:38 Pulse 68 07/02/18 13:38 Resp 16 07/02/18 13:38 BP 200/104 H 07/02/18 13:38 Pulse Ox 96 07/02/18 13:38 - Medical History PMH: Anemia, Anxiety, Arthritis, Dementia, Depression, Diabetes (type II), Gastritis, HTN, Hypercholesterolemia, Hyperlipidemia, Chronic Pain Denies: Hepatitis, HIV, Chronic Kidney Disease, Seizures, Sexually Transmitted Disease - Surgical History Surgical History: Cholecystectomy - Family History Family History: States: Unknown Family Hx <Ayaan Diaz - Last Filed: 07/02/18 15:45> Vital Signs: Last Vital Signs Temp 99.3 F 07/02/18 18:50 Pulse 65 07/02/18 21:35 Resp 18 07/02/18 21:35 BP 160/84 H 07/02/18 21:35 Pulse Ox 99 07/02/18 21:35 <Jacqui Ahumada - Last Filed: 07/07/18 10:36> - Home Medications Home Medications: Ambulatory Orders Medication Instructions Recorded Escitalopram [Lexapro] 1 tab PO DAILY #30 tab 04/30/16 ALPRAZolam [Xanax] 0.25 mg PO Q12 PRN #30 tab 10/13/16 Aspirin [Aspirin Chewable] 1 tab PO DAILY #30 chew 10/13/16 Fenofibrate [Tricor] 48 mg PO DAILY #30 tab 10/13/16 Memantine [Namenda] 5 mg PO DAILY #30 tab 10/13/16 Pantoprazole [Protonix EC Tab] 40 mg PO DAILY #30 ect 10/13/16 Simethicone [Mylicon Chew Tab] 80 mg PO TID PRN #60 10/13/16 Sucralfate [Carafate] 1 gm PO Q6 PRN #120 10/13/16 Valsartan [Diovan] 160 mg PO DAILY #30 tab 10/13/16 amLODIPine [Norvasc] 10 mg PO DAILY 30 Days tab 10/13/16 risperiDONE [RisperDAL Tab] 0.5 mg PO Q12 #60 tab 10/13/16 Dicyclomine [Dicyclomine HCl] 10 mg PO TID #15 cap 11/12/16 Famotidine [Pepcid] 20 mg PO DAILY 11/12/16 Lactulose [Constulose] 11/12/16 Lisinopril [Zestril] 20 mg PO DAILY 11/12/16 Simvastatin [Zocor] 20 mg PO HS 11/12/16 metFORMIN [glucOPHAGE] 500 mg PO BID 11/12/16 Lorazepam [Ativan] 1 mg PO HS #3 tablet 12/21/16 Sulfamethoxazole/Trimethoprim 1 tab PO BID #20 tab 05/21/18 [Bactrim DS 800 mg-160 mg] Acetaminophen [Tylenol Extra 1,000 mg PO Q6 PRN #100 tablet 07/02/18 Strength] Lidocaine 5% [Lidoderm] 1 ea TD DAILY PRN #20 patch 07/02/18 - Allergies Allergies/Adverse Reactions: Allergies Allergy/AdvReac Type Severity Reaction Status Date / Time No Known Allergies Allergy Verified 07/02/18 13:38 Review of Systems Constitutional: Negative for: Fever, Weakness Cardiovascular: Negative for: Chest Pain, Palpitations, Edema Respiratory: Negative for: Cough, Shortness of Breath Gastrointestinal: Negative for: Vomiting, Abdominal Pain, Diarrhea, Constipation Genitourinary Female: Negative for: Dysuria, Frequency Musculoskeletal: Positive for: Other (L hip pain). Negative for: Back Pain <Ayaan Diaz - Last Filed: 07/02/18 15:45> Physical Exam - Reviewed Nursing Documentation Reviewed: Yes Vital Signs Reviewed: Yes - Physical Exam Appears: Positive for: No Acute Distress Head Exam: Positive for: NORMAL INSPECTION Skin: Positive for: Warm, Dry. Negative for: Rash Eye Exam: Positive for: EOMI, PERRL Neck: Positive for: Normal, Supple Cardiovascular/Chest: Positive for: Regular Rate, Rhythm. Negative for: Murmur Respiratory: Positive for: Normal Breath Sounds. Negative for: Rales, Rhonchi, Wheezing Gastrointestinal/Abdominal: Positive for: Bowel Sounds, Soft. Negative for: Tenderness, Distended Extremity: Positive for: Tenderness (L hip at lateral aspect, no bruises noted, no internal/external rotation noted, straight leg rise negative b/l, leg rolling sign negative). Negative for: Calf Tenderness, Deformity, Swelling Neurological/Psych: Positive for: Awake, Alert, Age Appropriate <Ayaan Diaz Last Filed: 07/02/18 15:45> - ECG O2 Sat by Pulse Oximetry: 96 <Ayaan Diaz Last Filed: 07/02/18 15:45> Medical Decision Making Medical Decision Making: L hip pain Plan: -- Tylenol PO once -- Lidoderm patch -- Hip xray -- Re eval. 1515 -- patient reports feeling little better though still mild pain Hip xray negative for fractures or acute changes - will discharge pt to home <Ayaan Diaz - Last Filed: 07/02/18 15:45> Disposition - Patient ED Disposition Is Patient to be Admitted: No Counseled Patient/Family Regarding: Studies Performed, Diagnosis, Need For Followup - Disposition Disposition: Routine/Home Disposition Time: 15:43 <Ayaan Diaz - Last Filed: 07/02/18 15:45> <Jacqui Ahumada - Last Filed: 07/07/18 10:36> - Clinical Impression Clinical Impression: Hip pain, Osteoarthritis of hip - Disposition Referrals: Young Levin MD [Family Provider] - 07/03/18 Condition: STABLE Prescriptions: Acetaminophen [Tylenol Extra Strength] 1,000 mg PO Q6 PRN #100 tablet PRN Reason: FEVER OR PAIN Lidocaine 5% [Lidoderm] 1 ea TD DAILY PRN #20 patch PRN Reason: PAIN Instructions: Hip Pain in Older People Print Language: FRISIAN - PA / SENIOR ENERGY ANALYST / Resident Statement MD/DO has examined the patient and agrees with the treatment plan. <Jacqui Ahumada - Last Filed: 07/07/18 10:36>
--- NOTE | 2018-07-02 14:11 | ED PDOC ---
Arrival/HPI - General Chief Complaint: Hip Pain Past Medical History - Infectious Disease Hx of Infectious Diseases: None - Tetanus Immunization Tetanus Immunization: Unknown - Cardiac Hx Hypertension: Yes - Pulmonary Hx Tuberculosis: No - Neurological Hx Dementia: Yes - HEENT Hx HEENT Disorder: No - Renal Hx Renal Disorder: No - Endocrine/Metabolic Hx Endocrine Disorders: Yes Hx Diabetes Mellitus Type 2: Yes - Hematological/Oncological Hx Anemia: Yes Hx Blood Transfusions: No - Integumentary Hx Dermatological Disorder: No - Musculoskeletal/Rheumatological Hx Arthritis: Yes - Gastrointestinal Hx Gastritis: Yes - Genitourinary/Gynecological Hx Sexually Transmitted Diseases: No - Psychiatric Hx Anxiety: Yes Hx Depression: Yes Hx Substance Use: No - Surgical History Hx Cholecystectomy: Yes - Anesthesia Hx Anesthesia: Yes Hx Anesthesia Reactions: No Family/Social History Smoking Status: Never Smoked Hx Alcohol Use: No Hx Substance Use: No Allergies/Home Meds Allergies/Adverse Reactions: Allergies No Known Allergies Allergy (Verified 07/02/18 13:38) Home Medications: Home Meds Medication Instructions Recorded Confirmed Famotidine [Pepcid] 20 mg PO DAILY 11/12/16 11/12/16 Lactulose [Constulose] 11/12/16 Lisinopril [Zestril] 20 mg PO DAILY 11/12/16 11/12/16 Simvastatin [Zocor] 20 mg PO HS 11/12/16 11/12/16 metFORMIN [glucOPHAGE] 500 mg PO BID 11/12/16 11/12/16 Physical Exam Vital Signs Temp Pulse Resp BP Pulse Ox 07/02/18 13:38 98.0 F 68 16 200/104 H 96 Medical Decision Making - RAD Interpretation Radiology Orders: 07/02/18 14:07 HIP 1 VIEW W/ PELVIS LT [RAD] Stat - Medication Orders Current Medication Orders: Acetaminophen (Tylenol 325mg Tab) 650 mg PO ONCE ONE Stop: 07/02/18 14:10 Lidocaine (Lidoderm) 1 ea TD STAT STA Stop: 07/02/18 14:10 Disposition/Present on Arrival - Present on Arrival History of DVT/PE: No History of Uncontrolled Diabetes: No Urinary Catheter: No - Disposition
[2018-07-02] MEDS ORDERED: Lidocaine 5% Patch TD ONE (15:17)
--- NOTE | 2018-07-02 15:41 | RAD ---
PROCEDURE: Left Hip X-ray Radiographs. HISTORY: Left hip Pain. No history of recent/ related trauma provided. COMPARISON: None. TECHNIQUE: 2 views obtained. FINDINGS: BONES: Normal. No fracture. JOINTS: Mild degenerative changes which are approximately symmetrical. SOFT TISSUES: Normal. OTHER FINDINGS: None. IMPRESSION: No acute findings related to/ accounting for the clinical presentation. Concordant results with the preliminary interpretation rendered by the emergency department physician procedure.
[2018-07-02 18:51] VITALS: RESP 18; TEMP 99.3
[2018-07-03 06:14] VITALS: BP 160/84; PULSE 65; O2SAT 99
== END 2018-07-02 21:35 | disposition home or self-care (01) ==
LOC: H.ER 13:35
DX: M25.552 Pain in left hip (principal); M16.12 Unilateral primary osteoarthritis, left hip; E11.9 Type 2 diabetes mellitus without complications; E78.00 Pure hypercholesterolemia, unspecified; F03.90 Unspecified dementia, unspecified severity, without behavioral disturbance, psychotic disturbance, mood disturbance, and anxiety; G89.29 Other chronic pain; I10 Essential (primary) hypertension; Z79.84 Long term (current) use of oral hypoglycemic drugs